=== PATIENT | male | born 1975 | race African-American/Black ===

== ENCOUNTER 2017-12-20 00:31 | Emergency (ER) | payer SELFPAY ==
--- NOTE | 2017-12-20 01:37 | ER Document Report ---
ED General - General Chief Complaint: Foot Pain Stated Complaint: LEFT FOOT PAIN Time Seen by Provider: 12/20/17 01:05 Notes: Patient is a 41-year-old male with a past medical history of schizophrenia who presents with left foot pain. The patient states that he has a dull, aching, throbbing pain to the plantar surface of his left foot that has been worsening over the last several weeks. He states that there is an associated callus on the bottom of the foot that he believes is causing the pain. He denies any history of similar symptoms in the past. He has not done a try to treat the area. Nothing seems to worsen his symptoms other than being up and walking around on the area. He has not seen his primary doctor regarding today's concerns. He denies any spreading redness from the area, fever or constitutional symptoms. TRAVEL OUTSIDE OF THE [place] IN LAST 30 DAYS: No - Related Data Allergies/Adverse Reactions: No Known Allergies Allergy (Unverified 08/20/16 10:56) Past Medical History - General Information source: Patient - Social History Smoking Status: Current Every Day Smoker Frequency of alcohol use: None Drug Abuse: None Family History: Reviewed & Not Pertinent Patient has suicidal ideation: No Patient has homicidal ideation: No Renal/ Medical History: Denies: Hx Peritoneal Dialysis Psychiatric Medical History: Reports: Hx Depression - anxiety, Hx Schizophrenia Traumatic Medical History: Reports: Hx Traumatic Brain Injury - 10 years ago Review of Systems - Review of Systems Notes: Constitutional: Negative for fever. HENT: Negative for sore throat. Eyes: Negative for visual changes. Cardiovascular: Negative for chest pain. Respiratory: Negative for shortness of breath. Gastrointestinal: Negative for abdominal pain, vomiting or diarrhea. Genitourinary: Negative for dysuria. Musculoskeletal: Positive for left foot pain Skin: Negative for rash. Neurological: Negative for headaches, weakness or numbness. 10 point ROS negative except as marked above and in HPI. Physical Exam - Vital signs Vitals: Temp Pulse Resp BP Pulse Ox 98.0 F 77 16 139/90 H 99 12/20/17 00:39 12/20/17 00:39 12/20/17 00:39 12/20/17 00:39 12/20/17 00:39 Interpretation: Normal Notes: PHYSICAL EXAMINATION: GENERAL: Well-appearing, well-nourished and in no acute distress. HEAD: Atraumatic, normocephalic. EYES: sclera anicteric, conjunctiva are normal. ENT: Moist mucous membranes. NECK: Normal range of motion LUNGS: Normal work of breathing HEART: 2+ radial pulses bilaterally EXTREMITIES: no pitting or edema. No cyanosis. NEUROLOGICAL: No focal neurological deficits. Moves all extremities spontaneously and on command. PSYCH: Normal mood, normal affect. SKIN: Warm, Dry, normal turgor, there is a 2 x 1 cm callus at the plantar central base of the left foot with a small crack at the most superior aspect of the callus. No surrounding erythema. Course - Re-evaluation Re-evalutation: 12/20/17 01:36 Patient presents complaining of left foot pain. He has been noted to be walking around without any difficulty. However, he does have 2 x 1 cm area of a callus without any evidence of necrosis or associated cellulitis on the plantar surface of the mid left foot. No evidence of a septic joint, gout flare , dislocation, or fracture on exam and imaging. Vitals wnl. At this time, I do not see an indication for labs or further imaging. I have strongly encouraged the patient to keep off of the foot as much as possible, keep the area padded, and continue to dress the area regularly. I have also encouraged follow-up with his primary care physician and wound management. At this time will discharge with return precautions and follow-up recommendations. Verbal discharge instructions given a the bedside and opportunity for questions given. Medication warnings reviewed. Patient is in agreement with this plan and has verbalized understanding of return precautions and the need for primary care follow-up in the next 24-72 hours. - Vital Signs Vital signs: Temp Pulse Resp BP Pulse Ox 97.3 F 73 16 129/58 H 99 12/20/17 02:01 12/20/17 02:01 12/20/17 02:01 12/20/17 02:01 12/20/17 02:01 - Diagnostic Test Radiology reviewed: Image reviewed, Reports reviewed Radiology results interpreted by me: 12/20/17 01:36 Left foot x-ray: No acute fracture or dislocation Discharge - Discharge Clinical Impression: Left foot pain Condition: Good Disposition: HOME, SELF-CARE Additional Instructions: Your x-ray does not show any acute fracture today. You should continue to take anti-inflammatories such as ibuprofen 600 mg every 6 hours. Continue to apply ice to the area is much your able. Please follow-up with your primary care physician if you do not have improving your symptoms in the next 1-2 weeks. Please return immediately if you develop weakness, numbness, spreading redness from the area, or any other symptoms that are concerning to you.
--- NOTE | 2017-12-20 02:01 | RADIOLOGY REPORT (SQ) ---
EXAM DESCRIPTION: FOOT LEFT COMPLETE CLINICAL HISTORY: 41 years, Male, pain soft tissue injury. COMPARISON: None. NUMBER OF VIEWS: 3 LIMITATIONS: None. Findings: Bones, joints, and soft tissues of the left foot appear intact. No radiopaque foreign body. IMPRESSION: No acute findings.
[2017-12-20 02:08] VITALS: BP 129/58
== END 2017-12-20 02:10 | disposition home or self-care (01) ==
LOC: ER 00:31
DX: M79.672 Pain in left foot (principal); L84 Corns and callosities; F20.9 Schizophrenia, unspecified; F17.200 Nicotine dependence, unspecified, uncomplicated
CPT/HCPCS: 99283

== ENCOUNTER 2019-02-27 23:01 | Inpatient (IN) | payer MEDICARE, MEDICAID ==
[2019-02-27] MEDS ORDERED: MIDAZOLAM HCL 50 MG/100 ML RTUINJ ONE (23:06)
[2019-02-27] MEDS ORDERED: MIDAZOLAM HCL 50 MG/100 ML RTUINJ IV PRN (23:07)
[2019-02-27] MEDS ORDERED: ETOMIDATE INJ/PF 20 MG/10 ML SDV IV ONE (23:08)
[2019-02-27] MEDS ORDERED: ROCURONIUM BROMIDE INJ 50 MG/5 ML VIAL IV ONE (23:08)
--- NOTE | 2019-02-27 23:13 | ER Document Report ---
ED General - General Stated Complaint: OTHER Time Seen by Provider: 02/27/19 23:07 Notes: Patient is a 43-year-old male here arrives unresponsive. Paramedics said he was found outside a building on the sidewalk unresponsive. Per medics that there was some chewing gum in his mouth which they cleared. He has been somnolent. He was given 2 mg of Narcan by the fire department. He was given another milligram by the paramedics. He had no response to the Narcan. Patient has had some posturing. They said he may have had some seizure-like activity when they first arrived. Blood sugar was 127. No further history is obtainable at this time. TRAVEL OUTSIDE OF THE [place] IN LAST 30 DAYS: No - Related Data Allergies/Adverse Reactions: No Known Allergies Allergy (Unverified 08/20/16 10:56) Past Medical History - Social History Smoking Status: Unknown if Ever Smoked Frequency of alcohol use: unknown Drug Abuse: Other - unknown Family History: Reviewed & Not Pertinent Renal/ Medical History: Denies: Hx Peritoneal Dialysis Psychiatric Medical History: Reports: Hx Depression - anxiety, Hx Schizophrenia Traumatic Medical History: Reports: Hx Traumatic Brain Injury - 10 years ago Review of Systems - Review of Systems -: Yes ROS unobtainable due to patient's medical condition Physical Exam - Vital signs Vitals: Resp Pulse Ox 18 100 02/27/19 23:04 02/27/19 23:04 - Notes Notes: General Appearance: Completely unresponsive. Snoring type respirations. Occasional posturing. Vitals: reviewed, See vital signs table. Head: no swelling or tenderness to the head Eyes: PERRL, EOMI, Conjuctiva clear Mouth: No decreasd moisture Throat: No tonsillar inflammation, No airway obstruction, No lymphadenopathy Neck: Cervical collar in place. Lungs: No wheezing, No rales, No rhonci, No accessory muscle use, good air exchange bilaterally. Heart: Normal rate, Regular rythm, No murmur, no rub Abdomen: Normal BS, soft, No rigidity, No abdominal tenderness, No guarding, no rebound, no abdominal masses, no organomegaly Extremities: good pulses in all extremities, no pharmacy to extremities, no edema. Skin: warm, dry, appropriate color, no rash Neuro: Patient is completely unresponsive. Pupils are 3 to 4 mm and reactive. Patient has occasional posturing of the upper and lower extremities. Patient does not respond at all to painful or verbal stimuli. Snoring respirations. Course - Re-evaluation Re-evalutation: 02/27/19 23:13 Patient arrives unresponsive. He is a received a total of 3 mg of Narcan and his pupils are normal shape and size and therefore I do not feel that further Narcan will be of any benefit whatsoever. Therefore went forward with intubation of the patient. Patient is now intubated on ventilator. 02/28/19 02:15 Patient has been doing well on the ventilator. His alcohol is 3-5. This may be why he is currently unresponsive. CT scan of his head and neck are negative. Drug screen is negative. Rest of his laboratory evaluation is unremarkable. I will speak with the hospitalist about potential admission. - Vital Signs Vital signs: Temp Pulse Resp BP Pulse Ox 97.2 F 87 18 123/81 96 02/28/19 05:06 02/28/19 05:06 02/28/19 05:06 02/28/19 05:06 02/28/19 05:06 - Laboratory Result Diagrams: 02/28/19 03:49 02/28/19 03:49 Laboratory results interpreted by me: 02/27/19 02/27/19 02/27/19 23:05 23:05 23:05 Carbonic Acid 1.65 H ABG pH 7.33 L ABG pCO2 54.7 H ABG pO2 272.4 H ABG HCO3 27.9 H ABG Total CO2 29.5 H ABG O2 Saturation 99.6 H Glucose 114 H Phosphorus Creatine Kinase 759 H Urine Ascorbic Acid Salicylates < 1.0 L Acetaminophen < 10 L Carbamazepine [place] < 0.2 L Serum Alcohol 385 H* 02/27/19 02/27/19 02/28/19 23:05 23:05 00:00 Carbonic Acid ABG pH ABG pCO2 ABG pO2 ABG HCO3 ABG Total CO2 ABG O2 Saturation Glucose Phosphorus 5.2 H Creatine Kinase Urine Ascorbic Acid 40 H Salicylates Acetaminophen Carbamazepine < 2.0 L [place] Serum Alcohol - EKG Interpretation by Me Additional EKG results interpreted by me: 02/28/19 00:56 EKG is reviewed and interpreted by me. EKG shows sinus rhythm with rate of [address] segment elevation or depression. Mild T wave inversions to leads V1 and V2 which are not change in comparison to his previous EKG from August2015. CO interval, QTc intervals are within normal range. QRS duration is slightly prolonged. Procedures - Intubation Orotracheal Airway evaluation: Normal anatomy Mallampati Classification: Class 1 Medications: Etomidate, Other - rocuronium Intubation method: Orotracheal Blade type: Jordi Blade size: 4 Equipment used: Glidescope ETT size: 7.5 Breath Sounds after Intubation: Equal End tidal CO2 confirmed: Yes Post Intubation Xray: Yes - appropriate positioning Intubation Complications: No complications Critical Care Note - Critical Care Note Total time excluding time spent on procedures (mins): 65 Comments: Critical care time for this patient including time spent in procedures a pproximately 65 minutes due to frequent re-evaluations, management of airway, management of sedation. Discharge - Discharge Clinical Impression: Respiratory failure Qualifiers: Chronicity: acute Respiratory failure complication: unspecified whether with hypoxia or hypercapnia Qualified Code(s): J96.00 - Acute respiratory failure, unspecified whether with hypoxia or hypercapnia Altered mental status Qualifiers: Altered mental status type: unspecified Qualified Code(s): R41.82 - Altered mental status, unspecified Hypothermia Qualifiers: Encounter type: initial encounter Qualified Code(s): T68.XXXA - Hypothermia, initial encounter Alcohol intoxication Qualifiers: Complication of substance-induced condition: with delirium Qualified Code(s): F10.921 - Alcohol use, unspecified with intoxication delirium Condition: Stable Disposition: ADMITTED INPATIENT Admitting Provider: John (Hospitalist) Unit Admitted: ICU
[2019-02-27 23:29] LABS: ABSOLUTE LYMPHOCYTES (AUTO) 1.9 10^3/uL (0.5-4.7); ABSOLUTE MONOCYTES (AUTO) 0.4 10^3/uL (0.1-1.4); ABSOLUTE NEUT (AUTO) 3.9 10^3/uL (1.7-8.2); BASOPHILS % (AUTO) 0.7 % (0-2); EOSINOPHILS % (AUTO) 0.4 % (0-6); HEMATOCRIT 41.8 % (37.9-51.0); LYMPHOCYTES % (AUTO) 30.8 % (13-45); MEAN CORPUSCULAR HEMOGLOBIN 29.5 pg (27.0-33.4); MEAN CORPUSCULAR HGB CONC 33.6 g/dL (32.0-36.0); MEAN CORPUSCULAR VOLUME 88 fl (80-97); MONOCYTES % (AUTO) 5.8 % (3-13); PLATELET COUNT 326 10^3/uL (150-450); RED BLOOD COUNT 4.75 10^6/uL (4.35-5.55); RED CELL DISTRIBUTION WIDTH 12.8 % (11.5-14.0); SEGMENTED NEUTROPHILS % (AUTO) 62.3 % (42-78); TOTAL CELLS COUNTED % (AUTO) 100 %; WHITE BLOOD COUNT 6.3 10^3/uL (4.0-10.5)
--- NOTE | 2019-02-27 23:44 | RADIOLOGY REPORT (SQ) ---
EXAM DESCRIPTION: XR CHEST 1 VIEW COMPLETED DATE/TME: 02/27/2019 23:09 CLINICAL HISTORY: 43 years, Male, post intubation COMPARISON: None. NUMBER OF VIEWS: Two TECHNIQUE: Two views of the chest were obtained. LIMITATIONS: None. FINDINGS: Endotracheal tube tip is located in the trachea, approximately 6.7 cm above the kayleen. Enteric drainage tube tip projects about the gastric body. However, the side-port is located the GE junction. Cardiac and mediastinal contours are normal. Lungs are clear. No pleural effusion or pneumothorax. Nipple shadows are noted about both hemithoraces. IMPRESSION: Clear lungs. Endotracheal tube tip is located within the trachea, approximately 6.7 cm above the kayleen. Enteric drainage tube tip projects about the gastric body with side-port located at the GE junction. Consider advancement for optimal positioning. copyright 2010 [employer]- All Rights Reserved
[2019-02-27] MEDS: MIDAZOLAM 2 MG/2 ML INJ IV ONE (23:45)
[2019-02-27 23:52] LABS: ALANINE AMINOTRANSFERASE 44 U/L (21-72); ALBUMIN 4.4 g/dL (3.5-5.0); ALKALINE PHOSPHATASE 118 U/L (38-126); ANION GAP 14 (5-19); ASPARTATE AMINO TRANSFERASE 43 U/L (17-59); BILIRUBIN,DIRECT 0.2 mg/dL (0.0-0.4); BILIRUBIN,TOTAL 0.2 mg/dL (0.2-1.3); BLOOD UREA NITROGEN 17 mg/dL (7-20); CALCIUM 9.4 mg/dL (8.4-10.2); CARBON DIOXIDE 27 mmol/L (22-30); CHLORIDE 104 mmol/L (98-107); GLUCOSE 114 mg/dL (75-110); POTASSIUM 4.1 mmol/L (3.6-5.0); SODIUM 144.9 mmol/L (137-145); TOTAL PROTEIN 7.2 g/dL (6.3-8.2)
[2019-02-27 23:53] LABS: ACETAMINOPHEN < 10 ug/mL (10-30); SALICYLATE < 1.0 mg/dL (2.0-20.0)
--- NOTE | 2019-02-27 23:53 | RADIOLOGY REPORT (SQ) ---
CT HEAD WITHOUT IV CONTRAST HISTORY: Head trauma. COMPARISON: None. TECHNIQUE: CT scan of the brain without IV contrast. This exam was performed according to our departmental dose-optimization program, which includes automated exposure control, adjustment of the mA and/or kV according to patient size and/or use of iterative reconstruction technique. FINDINGS: The ventricles, cisterns, and sulci are unremarkable. No focal white matter lesions are seen. No evidence of acute infarction, intracranial hemorrhage, extra-axial fluid collection, or midline shift. Mild mucosal thickening of the ethmoid air cells and frontal sinuses. No air-fluid levels are seen. The mastoid air cells are clear. No depressed skull fracture. IMPRESSION: No acute intracranial findings.
--- NOTE | 2019-02-27 23:53 | RADIOLOGY REPORT (SQ) ---
EXAM DESCRIPTION: CT CERVICAL SPINE WITHOUT IV CONTRAST COMPLETED DATE/TME: 02/27/2019 23:08 CLINICAL HISTORY: 43 years, Male, trauma COMPARISON: None. TECHNIQUE: Noncontrast CT of the cervical spine was performed. Coronal and sagittal reformations were created. Images stored on PACS. All CT scanners at this facility use dose modulation, iterative reconstruction, and/or weight based dosing when appropriate to reduce radiation dose to as low as reasonably achievable (ALARA). [facility]: Dose Right [facility]: CareDose [facility]: Dose Right [facility]: Teradose 4D [facility]: [employer] LIMITATIONS: None. FINDINGS: Limited evaluation of the posterior fossa structures reveals no suspicious finding. Occipital condyles are normal. Lateral masses of C1 and C2 align properly. Base and tip of the dens are intact. Craniocervical alignment is maintained. Cervical vertebral body heights and alignments are maintained. Only mild intervertebral space narrowing is noted at C6-C7 with associated anterior/posterior endplate spurring. No acute fracture or malalignment is appreciated. Visualized lung apices are clear. Paravertebral soft tissues show no suspicious finding. IMPRESSION: No acute fracture or malalignment. TECHNICAL DOCUMENTATION: Quality ID # [id number]: Final reports with documentation of one or more dose reduction techniques (e.g., Automated exposure control, adjustment of the mA and/or kV according to patient size, use of iterative reconstruction technique) copyright 2011 [employer]- All Rights Reserved
[2019-02-28 00:07] LABS: ALCOHOL 385 mg/dL (NONE DETECTED)
[2019-02-28] MEDS: MIDAZOLAM 2 MG/2 ML INJ IV ONE (00:10)
[2019-02-28 00:59] LABS: ARTERIAL BLOOD BASE EXCESS 0.7 mmol/L; ARTERIAL BLOOD FIO2 50%; ARTERIAL BLOOD H2CO3 1.65 mmol/L (1.05-1.35); ARTERIAL BLOOD HCO3 27.9 mmol/L (20-24); ARTERIAL BLOOD O2 SATURATION 99.6 % (94-98); ARTERIAL BLOOD PCO2 54.7 mmHg (35-45); ARTERIAL BLOOD PH 7.33 (7.35-7.45); ARTERIAL BLOOD PO2 272.4 mmHg (80-100); ARTERIAL BLOOD TOTAL CO2 29.5 mmol/L (23-27)
[2019-02-28 01:10] LABS: APPEARANCE,URINE CLEAR; BILIRUBIN,URINE NEGATIVE (NEGATIVE); COLOR,URINE YELLOW; GLUCOSE, URINE NEGATIVE (NEGATIVE); KETONES,URINE NEGATIVE (NEGATIVE); LEUKOCYTE ESTERASE,URINE NEGATIVE (NEGATIVE); NITRITE,URINE NEGATIVE (NEGATIVE); PROTEIN,URINE NEGATIVE (NEGATIVE); URINE SPECIFIC GRAVITY 1.012; UROBILINOGEN,URINE NEGATIVE mg/dL (<2.0)
[2019-02-28 02:10] LABS: URINE AMPHETAMINES SCREEN NEGATIVE; URINE BARBITURATES SCREEN NEGATIVE; URINE BENZODIAZEPINES SCREEN NEGATIVE; URINE COCAINE SCREEN NEGATIVE; URINE MARIJUANA (THC) SCREEN NEGATIVE; URINE METHADONE SCREEN NEGATIVE; URINE PHENCYCLIDINE SCREEN NEGATIVE
[2019-02-28] MEDS ORDERED: IPRATROPIUM/ALBUTEROL 0.5-2.5 MG/3 ML AMPUL NEB PRN (02:20)
[2019-02-28] MEDS ORDERED: ACETAMINOPHEN 325 MG TABLET NG PRN (02:20)
[2019-02-28] MEDS ORDERED: DEXTROSE 50%-WATER 25 GM/50 ML DISP.SYRIN IV PRN ×2 (02:28)
[2019-02-28] MEDS ORDERED: GLUCAGON,HUMAN RECOMB 1 MG INJ IM PRN (02:28)
[2019-02-28] MEDS ORDERED: DEXTROSE 40% GEL 15 GM TUBE PO PRN ×2 (02:28)
[2019-02-28 02:34] LABS: CREATINE KINASE 759 U/L (55-170)
[2019-02-28 02:36] LABS: LITHIUM < 0.2 mEq/L (0.6-1.2)
[2019-02-28 02:54] LABS: PHOSPHORUS 5.2 mg/dL (2.5-4.5)
--- NOTE | 2019-02-28 03:56 | PDOC H&P ---
History of Present Illness Admission Date/PCP: 02/28/19 02:46 ANDRE DAWKINS MD Patient complains of: Altered mental status History of Present Illness: MJ SAUCEDO is a 43 year old male whose history is obtained by the emergency room provider as the patient is intubated and sedated. Past medical history includes schizophrenia, tobacco and alcoholism. Patient arrives via EMS after found unresponsive and apneic on the sidewalk. He received 2 mg of Narcan wi thout response he received a second dose without response. Blood sugar was 127 he was noted to have some posturing. In the emergency room he remains unresponsive with hypothermia of 94.9, apnea, unable to protect his airway intubated and placed on a bear hugger. Labs reveal an alcohol of 385, total CK is pending. He is referred to the hospitalist for admission. Patient is found disheveled, without evidence of trauma and comfortable on current ventilator settings. Past Medical History Psychiatric Medical History: Reports: Alcohol Dependency, Depression - anxiety, Schizoaffective Disorder, Tobacco Dependency Traumatic Medical History: Reports: Traumatic Brain Injury - 10 years ago Social History Information Source: Emergency Med Personnel, [facility] Records Smoking Status: Unknown if Ever Smoked Frequency of Alcohol Use: Heavy - Advance Directive Resuscitation Status: Full Code Family History Family History: Other - Unobtainable Parental Family History Reviewed: Yes - Unobtainable Children Family History Reviewed: Yes - Unobtainable Sibling(s) Family History Reviewed.: Yes - Unobtainable Medication/Allergy Home Medications: Atomoxetine HCl [Strattera 60 mg Capsule] 60 mg PO DAILY 08/24/16 Carbamazepine 1,000 mg PO DAILY 08/24/16 Donepezil HCl 10 mg PO QHS 08/24/16 Risperidone [Risperdal] 3 mg PO QHS 08/24/16 Allergies/Adverse Reactions: No Known Allergies Allergy (Unverified 08/20/16 10:56) Review of Systems ROS unobtainable: Due to mental status - Intubated and sedated Physical Exam Vital Signs: Temp Pulse Resp BP Pulse Ox 96.1 F L 19 138/102 H 100 02/28/19 01:26 02/28/19 01:26 02/28/19 01:39 02/28/19 01:26 Intake & Output 05/07/19 05/08/19 05/09/19 11:59 11:59 11:59 Intake Total 9 Output Total 1500 Balance -1491 Weight 79 kg General appearance: PRESENT: disheveled, well-developed, well-nourished, other - Comfortable, intubated and sedated Head exam: PRESENT: atraumatic, normocephalic Eye exam: PRESENT: conjunctiva pink, EOMI, PERRLA. ABSENT: scleral icterus Ear exam: PRESENT: normal external ear exam Mouth exam: PRESENT: moist, tongue midline Neck exam: ABSENT: carotid bruit, JVD, lymphadenopathy, thyromegaly Respiratory exam: PRESENT: clear to auscultation juan antonio. ABSENT: rales, rhonchi, wheezes Cardiovascular exam: PRESENT: RRR. ABSENT: diastolic murmur, rubs, systolic murmur Pulses: PRESENT: normal dorsalis pedis pul Vascular exam: PRESENT: normal capillary refill GI/Abdominal exam: PRESENT: normal bowel sounds, soft. ABSENT: distended, guarding, mass, organolmegaly, rebound, tenderness Rectal exam: PRESENT: deferred Extremities exam: PRESENT: full ROM. ABSENT: calf tenderness, clubbing, pedal edema Neurological exam: PRESENT: altered, other - Intubated and sedated, unresponsive to noxious stimuli. ABSENT: motor sensory deficit Psychiatric exam: PRESENT: appropriate affect, normal mood. ABSENT: homicidal ideation, suicidal ideation Skin exam: PRESENT: dry, intact, warm. ABSENT: cyanosis, rash Results Laboratory Results: 02/27/19 23:05 02/27/19 23:05 02/27/19 02/27/19 02/27/19 23:05 23:05 23:05 WBC 6.3 RBC 4.75 Hgb 14.0 Hct 41.8 MCV 88 MCH 29.5 MCHC 33.6 RDW 12.8 Plt Count 326 Seg Neutrophils % 62.3 Lymphocytes % 30.8 Monocytes % 5.8 Eosinophils % 0.4 Basophils % 0.7 Absolute Neutrophils 3.9 Absolute Lymphocytes 1.9 Absolute Monocytes 0.4 Absolute Eosinophils 0.0 Absolute Basophils 0.0 Carbonic Acid 1.65 H HCO3/H2CO3 Ratio 16:1 ABG pH 7.33 L ABG pCO2 54.7 H ABG pO2 272.4 H ABG HCO3 27.9 H ABG O2 Saturation 99.6 H ABG Base Excess 0.7 FiO2 50% Sodium 144.9 Potassium 4.1 Chloride 104 Carbon Dioxide 27 Anion Gap 14 BUN 17 Creatinine 0.91 Est GFR ( Amer) > 60 Est GFR (Non-Af Amer) > 60 Glucose 114 H Calcium 9.4 Phosphorus Magnesium Total Bilirubin 0.2 AST 43 ALT 44 Alkaline Phosphatase 118 Total Protein 7.2 Albumin 4.4 TSH Urine Color Urine Appearance Urine pH Ur Specific [place] Urine Protein Urine Glucose (UA) Urine Ketones Urine Blood Urine Nitrite Ur Leukocyte Esterase Urine WBC (Auto) Urine RBC (Auto) 02/27/19 02/27/19 02/28/19 23:05 23:05 00:00 WBC RBC Hgb Hct MCV MCH MCHC RDW Plt Count Seg Neutrophils % Lymphocytes % Monocytes % Eosinophils % Basophils % Absolute Neutrophils Absolute Lymphocytes Absolute Monocytes Absolute Eosinophils Absolute Basophils Carbonic Acid HCO3/H2CO3 Ratio ABG pH ABG pCO2 ABG pO2 ABG HCO3 ABG O2 Saturation ABG Base Excess FiO2 Sodium Potassium Chloride Carbon Dioxide Anion Gap BUN Creatinine Est GFR ( Amer) Est GFR (Non-Af Amer) Glucose Calcium Phosphorus 5.2 H Magnesium 2.3 Total Bilirubin AST ALT Alkaline Phosphatase Total Protein Albumin TSH 0.98 Urine Color YELLOW Urine Appearance CLEAR Urine pH 5.0 Ur Specific [place] 1.012 Urine Protein NEGATIVE Urine Glucose (UA) NEGATIVE Urine Ketones NEGATIVE Urine Blood NEGATIVE Urine Nitrite NEGATIVE Ur Leukocyte Esterase NEGATIVE Urine WBC (Auto) 0 Urine RBC (Auto) 0 02/27/19 23:05 Creatine Kinase 759 H Impressions: Cervical Spine CT 02/27/19 23:08 IMPRESSION: No acute fracture or malalignment. TECHNICAL DOCUMENTATION: Quality ID # 436: Final reports with documentation of one or more dose reduction techniques (e.g., Automated exposure control, adjustment of the mA and/or kV according to patient size, use of iterative reconstruction technique) copyright 2011 [employer]- All Rights Reserved Head CT 02/27/19 23:08 IMPRESSION: No acute intracranial findings. Chest X-Ray 02/27/19 23:09 IMPRESSION: Clear lungs. Endotracheal tube tip is located within the trachea, approximately 6.7 cm above the kayleen. Enteric drainage tube tip projects about the gastric body with side-port located at the GE junction. Consider advancement for optimal positioning. copyright 2011 [employer]- All Rights Reserved Assessment and Plan - Diagnosis (1) Altered mental status Qualifiers: Altered mental status type: unspecified Qualified Code(s): R41.82 - Altered mental status, unspecified Is this a current diagnosis for this admission?: Yes Plan: Alcohol detected however unclear if another compounding agent present. Follow- up Risperdal, Tegretol levels. Intubated for airway protection, supportive measures (2) Schizophrenia Is this a current diagnosis for this admission?: Yes Plan: Supportive measures will require mental health consult and resumption of antipsychotic (3) Rhabdomyolysis Is this a current diagnosis for this admission?: Yes Plan: Serial CK, no obvious evidence of trauma, unclear time down. Anticipate co mpartment syndrome. IV fluid challenge, follow-up total CK, consider bicarb (4) Alcohol intoxication Qualifiers: Complication of substance-induced condition: with delirium Qualified Code(s): F10.921 - Alcohol use, unspecified with intoxication delirium Is this a current diagnosis for this admission?: Yes Plan: Thiamine and folate initiated, via Versed currently will likely require transition to p.o. if extubated in anticipation of withdrawal. (5) Hypothermia Qualifiers: Encounter type: initial encounter Qualified Code(s): T68.XXXA - Hypothermia, initial encounter Is this a current diagnosis for this admission?: Yes Plan: Secondary to prolonged exposure. No evidence for sepsis, continue bear jacquie (6) Respiratory failure Qualifiers: Chronicity: acute Respiratory failure complication: unspecified whether with hypoxia or hypercapnia Qualified Code(s): J96.00 - Acute respiratory failure, unspecified whether with hypoxia or hypercapnia Is this a current diagnosis for this admission?: Yes Plan: Hypercapnic respiratory failure secondary to altered mental status, unclear agent, follow-up ABG - Time Time Spent with patient: 35 or more minutes - Inpatient Certification Medical Necessity: Need Close Monitoring Due to Risk of Patient Decompensation
[2019-02-28 04:13] LABS: ABSOLUTE LYMPHOCYTES (AUTO) 2.2 10^3/uL (0.5-4.7); ABSOLUTE MONOCYTES (AUTO) 0.2 10^3/uL (0.1-1.4); ABSOLUTE NEUT (AUTO) 2.5 10^3/uL (1.7-8.2); BASOPHILS % (AUTO) 0.9 % (0-2); EOSINOPHILS % (AUTO) 0.3 % (0-6); HEMATOCRIT 42.3 % (37.9-51.0); HEMOGLOBIN 14.2 g/dL (13.5-17.0); LYMPHOCYTES % (AUTO) 43.9 % (13-45); MEAN CORPUSCULAR HEMOGLOBIN 29.4 pg (27.0-33.4); MEAN CORPUSCULAR HGB CONC 33.6 g/dL (32.0-36.0); MEAN CORPUSCULAR VOLUME 88 fl (80-97); MONOCYTES % (AUTO) 4.2 % (3-13); PLATELET COUNT 364 10^3/uL (150-450); RED BLOOD COUNT 4.82 10^6/uL (4.35-5.55); RED CELL DISTRIBUTION WIDTH 13.1 % (11.5-14.0); SEGMENTED NEUTROPHILS % (AUTO) 50.7 % (42-78); TOTAL CELLS COUNTED % (AUTO) 100 %
[2019-02-28 04:32] LABS: ALANINE AMINOTRANSFERASE 42 U/L (21-72); ALBUMIN 4.1 g/dL (3.5-5.0); ALKALINE PHOSPHATASE 84 U/L (38-126); ANION GAP 14 (5-19); ASPARTATE AMINO TRANSFERASE 40 U/L (17-59); BILIRUBIN,DIRECT 0.2 mg/dL (0.0-0.4); BILIRUBIN,TOTAL 0.3 mg/dL (0.2-1.3); BLOOD UREA NITROGEN 14 mg/dL (7-20); CALCIUM 9.2 mg/dL (8.4-10.2); CARBON DIOXIDE 26 mmol/L (22-30); CHLORIDE 108 mmol/L (98-107); GLUCOSE 100 mg/dL (75-110); POTASSIUM 3.8 mmol/L (3.6-5.0); SODIUM 147.9 mmol/L (137-145); TOTAL PROTEIN 6.9 g/dL (6.3-8.2)
[2019-02-28] MEDS: NORMAL SALINE 1000 ML 1,000 ML IV PRN ×2 (04:36→17:46)
[2019-02-28 04:42] LABS: ARTERIAL BLOOD BASE EXCESS 0.9 mmol/L; ARTERIAL BLOOD H2CO3 1.45 mmol/L (1.05-1.35); ARTERIAL BLOOD HCO3 26.9 mmol/L (20-24); ARTERIAL BLOOD PCO2 48.1 mmHg (35-45); ARTERIAL BLOOD PH 7.37 (7.35-7.45); ARTERIAL BLOOD PO2 84.7 mmHg (80-100); ARTERIAL BLOOD TOTAL CO2 28.4 mmol/L (23-27)
[2019-02-28 04:52] LABS: ARTERIAL BLOOD FIO2 28%
[2019-02-28] MEDS: PANTOPRAZOLE SODIUM 40 MG TABLET.DR PO SCH (05:46)
[2019-02-28] MEDS: HEPARIN SOD (PORCINE) 5,000 UNIT/ML 1 ML SYRINGE SUBCUT SCH ×3 (05:46→21:13)
[2019-02-28] MEDS: MIDAZOLAM HCL 50 MG/100 ML RTUINJ IV PRN ×3 (07:24→18:27)
[2019-02-28] MEDS ORDERED: THIAMINE HCL 100 MG TABLET NG SCH (10:00)
[2019-02-28] MEDS ORDERED: FOLIC ACID 1 MG TABLET NG SCH (10:00)
[2019-02-28] MEDS ORDERED: ROCURONIUM BROMIDE INJ 50 MG/5 ML VIAL IV ONE (10:02)
[2019-02-28] MEDS ORDERED: MIDAZOLAM 2 MG/2 ML INJ IV PRN (11:47)
[2019-02-28] MEDS ORDERED: NORMAL SALINE 1000 ML 1,000 ML with MAGNESIUM SULFATE 8 MEQ, THIAMINE HCL 100 MG, MVI, ... IV SCH ×5 (13:30)
--- NOTE | 2019-02-28 15:18 | PDOC CONSULTATION ---
Consultation Consult Date: 02/28/19 Attending physician:: ANDRE DAWKINS Consult reason:: Hypoxic Respiratory Failure History of Present Illness Admission Date/PCP: 02/28/19 02:46 ANDRE DAWKINS MD History of Present Illness: MJ SAUCEDO is a 43 year old male was intubated and sedated in the ER, history of schizophrenia, tobacco abuse, and alcoholism. Consult requested due to patient being in hypoxic and hypercapnic respiratory failure. Due to intubation and sedation majority of history obtained of chart. Past Medical History Psychiatric Medical History: Reports: Alcohol Dependency, Depression - anxiety, Schizoaffective Disorder, Tobacco Dependency Traumatic Medical History: Reports: Traumatic Brain Injury - 10 years ago Social History Smoking Status: Unknown if Ever Smoked Frequency of Alcohol Use: Heavy - Advance Directive Resuscitation Status: Full Code Family History Family History: Reviewed & Not Pertinent Parental Family History Reviewed: No Children Family History Reviewed: No Sibling(s) Family History Reviewed.: No Medication/Allergy Home Medications: Cetirizine HCl [Zyrtec 10 mg Tablet] 10 mg PO DAILY 02/28/19 Allergies/Adverse Reactions: No Known Allergies Allergy (Unverified 08/20/16 10:56) Review of Systems ROS unobtainable: Due to endotracheal tube Physical Exam Vital Signs: Temp Pulse Resp BP Pulse Ox 97.3 F 95 18 126/89 H 96 02/28/19 08:01 02/28/19 08:01 02/28/19 08:01 02/28/19 08:01 02/28/19 08:47 Intake & Output 02/27/19 02/28/19 03/01/19 06:59 06:59 06:59 Intake Total 83 Output Total 1600 10 Balance -1517 -10 Weight 70.3 kg 70.3 kg General appearance: PRESENT: disheveled. ABSENT: no acute distress, obese Head exam: PRESENT: atraumatic, normocephalic Eye exam: PRESENT: conjunctiva pink, EOMI. ABSENT: periorbital swelling, scleral icterus Ear exam: PRESENT: normal external ear exam Mouth exam: PRESENT: moist, neck supple, tongue midline, other - ET TUBE IN PLACE Neck exam: ABSENT: carotid bruit, lymphadenopathy, tenderness, tracheal deviation, tracheostomy Respiratory exam: PRESENT: decreased breath sounds. ABSENT: rales, rhonchi, wheezes Cardiovascular exam: PRESENT: RRR. ABSENT: diastolic murmur, irregular rhythm Pulses: PRESENT: normal dorsalis pedis pul Vascular exam: PRESENT: normal capillary refill GI/Abdominal exam: PRESENT: normal bowel sounds, soft. ABSENT: hyperactive bowel sounds Rectal exam: PRESENT: deferred Gentrourinary exam: PRESENT: indwelling catheter. ABSENT: erythema, scrotal swelling Extremities exam: PRESENT: full ROM. ABSENT: clubbing, joint swelling, pedal edema Musculoskeletal exam: PRESENT: full ROM, normal inspection. ABSENT: deformity, dislocation Psychiatric exam: PRESENT: appropriate affect, normal mood. ABSENT: homicidal ideation, suicidal ideation Skin exam: PRESENT: dry, intact, warm. ABSENT: rash, skin tears Results Laboratory Results: 02/28/19 03:49 02/28/19 03:49 02/27/19 02/27/19 02/27/19 23:05 23:05 23:05 WBC 6.3 RBC 4.75 Hgb 14.0 Hct 41.8 MCV 88 MCH 29.5 MCHC 33.6 RDW 12.8 Plt Count 326 Seg Neutrophils % 62.3 Lymphocytes % 30.8 Monocytes % 5.8 Eosinophils % 0.4 Basophils % 0.7 Absolute Neutrophils 3.9 Absolute Lymphocytes 1.9 Absolute Monocytes 0.4 Absolute Eosinophils 0.0 Absolute Basophils 0.0 Carbonic Acid 1.65 H HCO3/H2CO3 Ratio 16:1 ABG pH 7.33 L ABG pCO2 54.7 H ABG pO2 272.4 H ABG HCO3 27.9 H ABG O2 Saturation 99.6 H ABG Base Excess 0.7 FiO2 50% Sodium 144.9 Potassium 4.1 Chloride 104 Carbon Dioxide 27 Anion Gap 14 BUN 17 Creatinine 0.91 Est GFR ( Amer) > 60 Est GFR (Non-Af Amer) > 60 Glucose 114 H Calcium 9.4 Phosphorus Magnesium Total Bilirubin 0.2 AST 43 ALT 44 Alkaline Phosphatase 118 Total Protein 7.2 Albumin 4.4 TSH Urine Color Urine Appearance Urine pH Ur Specific [place] Urine Protein Urine Glucose (UA) Urine Ketones Urine Blood Urine Nitrite Ur Leukocyte Esterase Urine WBC (Auto) Urine RBC (Auto) 02/27/19 02/27/19 02/28/19 23:05 23:05 00:00 WBC RBC Hgb Hct MCV MCH MCHC RDW Plt Count Seg Neutrophils % Lymphocytes % Monocytes % Eosinophils % Basophils % Absolute Neutrophils Absolute Lymphocytes Absolute Monocytes Absolute Eosinophils Absolute Basophils Carbonic Acid HCO3/H2CO3 Ratio ABG pH ABG pCO2 ABG pO2 ABG HCO3 ABG O2 Saturation ABG Base Excess FiO2 Sodium Potassium Chloride Carbon Dioxide Anion Gap BUN Creatinine Est GFR ( Amer) Est GFR (Non-Af Amer) Glucose Calcium Phosphorus 5.2 H Magnesium 2.3 Total Bilirubin AST ALT Alkaline Phosphatase Total Protein Albumin TSH 0.98 Urine Color YELLOW Urine Appearance CLEAR Urine pH 5.0 Ur Specific [place] 1.012 Urine Protein NEGATIVE Urine Glucose (UA) NEGATIVE Urine Ketones NEGATIVE Urine Blood NEGATIVE Urine Nitrite NEGATIVE Ur Leukocyte Esterase NEGATIVE Urine WBC (Auto) 0 Urine RBC (Auto) 0 02/28/19 02/28/19 02/28/19 03:49 03:49 04:30 WBC 5.0 RBC 4.82 Hgb 14.2 Hct 42.3 MCV 88 MCH 29.4 MCHC 33.6 RDW 13.1 Plt Count 364 Seg Neutrophils % 50.7 Lymphocytes % 43.9 Monocytes % 4.2 Eosinophils % 0.3 Basophils % 0.9 Absolute Neutrophils 2.5 Absolute Lymphocytes 2.2 Absolute Monocytes 0.2 Absolute Eosinophils 0.0 Absolute Basophils 0.0 Carbonic Acid 1.45 H HCO3/H2CO3 Ratio 18:1 ABG pH 7.37 ABG pCO2 48.1 H ABG pO2 84.7 ABG HCO3 26.9 H ABG O2 Saturation 96.0 ABG Base Excess 0.9 FiO2 28% Sodium 147.9 H Potassium 3.8 Chloride 108 H Carbon Dioxide 26 Anion Gap 14 BUN 14 Creatinine 0.81 Est GFR ( Amer) > 60 Est GFR (Non-Af Amer) > 60 Glucose 100 Calcium 9.2 Phosphorus Magnesium Total Bilirubin 0.3 AST 40 ALT 42 Alkaline Phosphatase 84 Total Protein 6.9 Albumin 4.1 TSH Urine Color Urine Appearance Urine pH Ur Specific [place] Urine Protein Urine Glucose (UA) Urine Ketones Urine Blood Urine Nitrite Ur Leukocyte Esterase Urine WBC (Auto) Urine RBC (Auto) 02/27/19 23:05 Creatine Kinase 759 H Impressions: Cervical Spine CT 02/27/19 23:08 IMPRESSION: No acute fracture or malalignment. TECHNICAL DOCUMENTATION: Quality ID # 436: Final reports with documentation of one or more dose reduction techniques (e.g., Automated exposure control, adjustment of the mA and/or kV according to patient size, use of iterative reconstruction technique) copyright 2011 [employer]- All Rights Reserved Head CT 02/27/19 23:08 IMPRESSION: No acute intracranial findings. Chest X-Ray 02/27/19 23:09 IMPRESSION: Clear lungs. Endotracheal tube tip is located within the trachea, approximately 6.7 cm above the kayleen. Enteric drainage tube tip projects about the gastric body with side-port located at the GE junction. Consider advancement for optimal positioning. copyright 2010 [employer]- All Rights Reserved Assessment & Plan - Diagnosis (1) Acute respiratory failure with hypoxia and hypercapnia Is this a current diagnosis for this admission?: Yes Plan: Patient currently on ventilator will plan for sedation vacations over the next 3 to 4 days we will keep these light due to patient EtOH withdrawal (2) Alcohol intoxication Qualifiers: Complication of substance-induced condition: with delirium Qualified Code(s): F10.921 - Alcohol use, unspecified with intoxication delirium Is this a current diagnosis for this admission?: Yes Plan: Patient currently on Versed order given to nurse for additional 2 mg every 6 PRN - Time Total Critical Time (Minutes): 63 Inpatient Scribe Statement - . Entered by Vika Cramer, acting as scribe for Dr. Argueta.
[2019-02-28] MEDS: PROPOFOL 1,000 MG/100 ML INFUS..BTL IV ONE ×2 (15:22→15:36)
[2019-02-28] MEDS: PROPOFOL 1,000 MG/100 ML INFUS..BTL IV PRN ×3 (15:25→22:43)
--- NOTE | 2019-02-28 19:45 | EKG REPORT ---
SEVERITY:- ABNORMAL ECG - SINUS RHYTHM PROBABLE LEFT ATRIAL ABNORMALITY NONSPECIFIC IVCD WITH LAD : Confirmed by: Jacquelyn Mariscal MD 28-Feb-2019 19:44:11
[2019-03-01] MEDS ORDERED: HALOPERIDOL LACTATE INJ 5 MG/1 ML VIAL ONE (00:06)
[2019-03-01] MEDS ORDERED: HALOPERIDOL LACTATE INJ 5 MG/1 ML VIAL IV ONE (00:30)
[2019-03-01 04:28] LABS: ABSOLUTE LYMPHOCYTES (AUTO) 1.3 10^3/uL (0.5-4.7); ABSOLUTE MONOCYTES (AUTO) 0.9 10^3/uL (0.1-1.4); BASOPHILS % (AUTO) 0.3 % (0-2); HEMATOCRIT 39.5 % (37.9-51.0); HEMOGLOBIN 13.3 g/dL (13.5-17.0); LYMPHOCYTES % (AUTO) 8.2 % (13-45); MEAN CORPUSCULAR HEMOGLOBIN 29.5 pg (27.0-33.4); MEAN CORPUSCULAR HGB CONC 33.7 g/dL (32.0-36.0); MEAN CORPUSCULAR VOLUME 88 fl (80-97); MONOCYTES % (AUTO) 5.4 % (3-13); PLATELET COUNT 338 10^3/uL (150-450); RED BLOOD COUNT 4.51 10^6/uL (4.35-5.55); RED CELL DISTRIBUTION WIDTH 13.2 % (11.5-14.0); SEGMENTED NEUTROPHILS % (AUTO) 86.1 % (42-78); TOTAL CELLS COUNTED % (AUTO) 100 %
[2019-03-01 04:31] LABS: ARTERIAL BLOOD BASE EXCESS 3.1 mmol/L; ARTERIAL BLOOD H2CO3 1.34 mmol/L (1.05-1.35); ARTERIAL BLOOD HCO3 28.2 mmol/L (20-24); ARTERIAL BLOOD O2 SATURATION 97.1 % (94-98); ARTERIAL BLOOD PCO2 44.4 mmHg (35-45); ARTERIAL BLOOD PH 7.42 (7.35-7.45); ARTERIAL BLOOD PO2 91.4 mmHg (80-100); ARTERIAL BLOOD TOTAL CO2 29.5 mmol/L (23-27)
[2019-03-01 04:32] LABS: ARTERIAL BLOOD FIO2 2L
[2019-03-01 04:32] LABS: WHITE BLOOD COUNT 16.2 10^3/uL (4.0-10.5)
[2019-03-01 04:40] LABS: ALANINE AMINOTRANSFERASE 38 U/L (21-72); ALBUMIN 3.7 g/dL (3.5-5.0); ALKALINE PHOSPHATASE 61 U/L (38-126); ANION GAP 9 (5-19); ASPARTATE AMINO TRANSFERASE 37 U/L (17-59); BILIRUBIN,DIRECT 0.3 mg/dL (0.0-0.4); BILIRUBIN,TOTAL 0.7 mg/dL (0.2-1.3); BLOOD UREA NITROGEN 20 mg/dL (7-20); CALCIUM 9.2 mg/dL (8.4-10.2); CARBON DIOXIDE 27 mmol/L (22-30); CHLORIDE 110 mmol/L (98-107); GLUCOSE 81 mg/dL (75-110); POTASSIUM 4.3 mmol/L (3.6-5.0); SODIUM 145.5 mmol/L (137-145); TOTAL PROTEIN 5.8 g/dL (6.3-8.2)
[2019-03-01] MEDS: PANTOPRAZOLE SODIUM 40 MG TABLET.DR PO SCH (05:12)
[2019-03-01] MEDS: HEPARIN SOD (PORCINE) 5,000 UNIT/ML 1 ML SYRINGE SUBCUT SCH ×3 (05:13→23:38)
--- NOTE | 2019-03-01 06:34 | RADIOLOGY REPORT (SQ) ---
EXAM DESCRIPTION: XR CHEST 1 VIEW COMPLETED DATE/TME: 03/01/2019 06:00 CLINICAL HISTORY: 43 years Male, resp failure COMPARISON: None. NUMBER OF VIEWS/TECHNIQUE: 1/AP FINDINGS: Adequate lung volume, clear parenchyma, normal cardiac silhouette, and intact bony thorax. IMPRESSION: No acute cardiopulmonary findings.
--- NOTE | 2019-03-01 07:30 | PDOC PROGRESS REPORT ---
Subjective Progress Note for:: 03/01/19 Subjective:: denies drinking tossed out rest home Reason For Visit: AMS INTOXICATION ACUTE RESP FAILURE Physical Exam Vital Signs: Temp Pulse Resp BP Pulse Ox 100.4 F 96 13 126/80 H 94 03/01/19 06:00 03/01/19 05:00 03/01/19 06:00 03/01/19 05:48 03/01/19 06:00 Intake & Output 02/27/19 02/28/19 03/01/19 07:59 07:59 07:59 Intake Total 83 2359.2 Output Total 1600 1295 Balance -1517 1064.2 Weight 154 lb 15.759 oz 166 lb 3.657 oz General appearance: PRESENT: no acute distress Respiratory exam: PRESENT: clear to auscultation juan antonio Cardiovascular exam: ABSENT: diastolic murmur, irregular rhythm, systolic murmur GI/Abdominal exam: ABSENT: mass, organolmegaly, tenderness Neurological exam: ABSENT: oriented to time Psychiatric exam: PRESENT: agitated Results Laboratory Results: Abnormal - 24 hr 03/01/19 03/01/19 03/01/19 03:45 03:45 04:11 WBC 16.2 H D Hgb 13.3 L Seg Neutrophils % 86.1 H Lymphocytes % 8.2 L Absolute Neutrophils 14.0 H ABG HCO3 28.2 H ABG Total CO2 29.5 H Sodium 145.5 H Chloride 110 H Total Protein 5.8 L Impressions: Cervical Spine CT 02/27/19 23:08 IMPRESSION: No acute fracture or malalignment. TECHNICAL DOCUMENTATION: Quality ID # 436: Final reports with documentation of one or more dose reduction techniques (e.g., Automated exposure control, adjustment of the mA and/or kV according to patient size, use of iterative reconstruction technique) copyright 2011 [employer]- All Rights Reserved Head CT 02/27/19 23:08 IMPRESSION: No acute intracranial findings. Chest X-Ray 03/01/19 06:00 IMPRESSION: No acute cardiopulmonary findings. Assessment & Plan - Diagnosis (1) Schizophrenia Qualifiers: Schizophrenia type: paranoid schizophrenia Qualified Code(s): F20.0 - Paranoid schizophrenia Is this a current diagnosis for this admission?: Yes Plan: psych consult (2) Acute respiratory failure with hypoxia and hypercapnia Is this a current diagnosis for this admission?: Yes Plan: ok off vent last night. Zryl104.1. CXR-. (3) Alcohol intoxication Qualifiers: Complication of substance-induced condition: with delirium Qualified Code(s): F10.921 - Alcohol use, unspecified with intoxication delirium Is this a current diagnosis for this admission?: Yes Plan: watch for withdrawal (4) Rhabdomyolysis Is this a current diagnosis for this admission?: Yes
[2019-03-02] MEDS: HEPARIN SOD (PORCINE) 5,000 UNIT/ML 1 ML SYRINGE SUBCUT SCH (05:03)
[2019-03-02] MEDS: PANTOPRAZOLE SODIUM 40 MG TABLET.DR PO SCH (05:03)
[2019-03-02 06:02] LABS: ABSOLUTE EOSINOPHILS # (AUTO) 0.1 10^3/uL (0.0-0.6); ABSOLUTE MONOCYTES (AUTO) 0.6 10^3/uL (0.1-1.4); ABSOLUTE NEUT (AUTO) 5.7 10^3/uL (1.7-8.2); BASOPHILS % (AUTO) 0.2 % (0-2); EOSINOPHILS % (AUTO) 0.8 % (0-6); HEMATOCRIT 36.9 % (37.9-51.0); HEMOGLOBIN 12.4 g/dL (13.5-17.0); LYMPHOCYTES % (AUTO) 24.2 % (13-45); MEAN CORPUSCULAR HEMOGLOBIN 29.8 pg (27.0-33.4); MEAN CORPUSCULAR HGB CONC 33.7 g/dL (32.0-36.0); MEAN CORPUSCULAR VOLUME 88 fl (80-97); MONOCYTES % (AUTO) 7.1 % (3-13); PLATELET COUNT 300 10^3/uL (150-450); RED BLOOD COUNT 4.18 10^6/uL (4.35-5.55); RED CELL DISTRIBUTION WIDTH 13.1 % (11.5-14.0); SEGMENTED NEUTROPHILS % (AUTO) 67.7 % (42-78); TOTAL CELLS COUNTED % (AUTO) 100 %; WHITE BLOOD COUNT 8.4 10^3/uL (4.0-10.5)
[2019-03-02 06:24] LABS: ANION GAP 6 (5-19); BLOOD UREA NITROGEN 16 mg/dL (7-20); CARBON DIOXIDE 31 mmol/L (22-30); CHLORIDE 107 mmol/L (98-107); GLUCOSE 79 mg/dL (75-110); POTASSIUM 4.4 mmol/L (3.6-5.0); SODIUM 144.2 mmol/L (137-145)
--- NOTE | 2019-03-02 09:07 | PDOC DISCHARGE SUMMARY ---
General - Admit/Disc Date/PCP Admission Date/Primary Care Provider: 02/28/19 02:46 ANDRE DAWKINS MD Discharge Date: 03/02/19 - Discharge Diagnosis (1) Schizophrenia Is this a current diagnosis for this admission?: Yes (2) Acute respiratory failure with hypoxia and hypercapnia Is this a current diagnosis for this admission?: Yes (3) Alcohol intoxication Is this a current diagnosis for this admission?: Yes (4) Rhabdomyolysis Is this a current diagnosis for this admission?: Yes - Additional Information Resuscitation Status: Full Code Discharge Diet: As Tolerated Discharge Activity: Activity As Tolerated History of Present Illness Patient complains of: found unresponsive History of Present Illness: MJ SAUCEDO is a 43 year old male with long standing schizophrenia or bipolar who is noncompliant according to [facility]. Although he denies drinking, he came in with level 384 and required a day of vent. Hospital Course Hospital Course: Extubated night before last. No dts or shakes. Physical Exam Vital Signs: Temp Pulse Resp BP Pulse Ox 98.1 F 68 16 129/82 H 99 03/02/19 08:28 03/02/19 08:28 03/02/19 08:28 03/02/19 08:28 03/02/19 08:28 Intake & Output 03/01/19 03/02/19 03/03/19 07:59 07:59 07:59 Intake Total 2359.2 740 Output Total 1295 750 Balance 1064.2 -10 Weight 166 lb 3.657 oz General appearance: PRESENT: no acute distress Respiratory exam: PRESENT: clear to auscultation juan antonio Cardiovascular exam: ABSENT: diastolic murmur, irregular rhythm, systolic murmur GI/Abdominal exam: ABSENT: mass, organolmegaly, tenderness Extremities exam: ABSENT: pedal edema Neurological exam: PRESENT: alert Psychiatric exam: PRESENT: appropriate affect Results Laboratory Results: Abnormal - 24 Labs- Last Values WBC 8.4 10^3/uL (4.0-10.5) 03/02/19 04:43 RBC 4.18 10^6/uL (4.35-5.55) L 03/02/19 04:43 Hgb 12.4 g/dL (13.5-17.0) L 03/02/19 04:43 Hct 36.9 % (37.9-51.0) L 03/02/19 04:43 MCV 88 fl (80-97) 03/02/19 04:43 MCH 29.8 pg (27.0-33.4) 03/02/19 04:43 MCHC 33.7 g/dL (32.0-36.0) 03/02/19 04:43 RDW 13.1 % (11.5-14.0) 03/02/19 04:43 Plt Count 300 10^3/uL (150-450) 03/02/19 04:43 Seg Neutrophils % 67.7 % (42-78) 03/02/19 04:43 Lymphocytes % 24.2 % (13-45) 03/02/19 04:43 Monocytes % 7.1 % (3-13) 03/02/19 04:43 Eosinophils % 0.8 % (0-6) 03/02/19 04:43 Basophils % 0.2 % (0-2) 03/02/19 04:43 Absolute Neutrophils 5.7 10^3/uL (1.7-8.2) 03/02/19 04:43 Absolute Lymphocytes 2.0 10^3/uL (0.5-4.7) 03/02/19 04:43 Absolute Monocytes 0.6 10^3/uL (0.1-1.4) 03/02/19 04:43 Absolute Eosinophils 0.1 10^3/uL (0.0-0.6) 03/02/19 04:43 Absolute Basophils 0.0 10^3/uL (0.0-0.2) 03/02/19 04:43 Carbonic Acid 1.34 mmol/L (1.05-1.35) 03/01/19 04:11 HCO3/H2CO3 Ratio 21:1 03/01/19 04:11 ABG pH 7.42 (7.35-7.45) 03/01/19 04:11 ABG pCO2 44.4 mmHg (35-45) 03/01/19 04:11 ABG pO2 91.4 mmHg (80-100) 03/01/19 04:11 ABG HCO3 28.2 mmol/L (20-24) H 03/01/19 04:11 ABG Total CO2 29.5 mmol/L (23-27) H 03/01/19 04:11 ABG O2 Saturation 97.1 % (94-98) 03/01/19 04:11 ABG Base Excess 3.1 mmol/L 03/01/19 04:11 FiO2 2L 03/01/19 04:11 Sodium 144.2 mmol/L (137-145) 03/02/19 04:43 Potassium 4.4 mmol/L (3.6-5.0) 03/02/19 04:43 Chloride 107 mmol/L (98-107) 03/02/19 04:43 Carbon Dioxide 31 mmol/L (22-30) H 03/02/19 04:43 Anion Gap 6 (5-19) 03/02/19 04:43 BUN 16 mg/dL (7-20) 03/02/19 04:43 Creatinine 0.59 mg/dL (0.52-1.25) 03/02/19 04:43 Est GFR ( Amer) > 60 (>60) 03/02/19 04:43 Est GFR (Non-Af Amer) > 60 (>60) 03/02/19 04:43 Glucose 79 mg/dL (75-110) 03/02/19 04:43 Calcium 9.0 mg/dL (8.4-10.2) 03/02/19 04:43 Phosphorus 5.2 mg/dL (2.5-4.5) H 02/27/19 23:05 Magnesium 2.0 mg/dL (1.6-2.3) 03/02/19 04:43 Total Bilirubin 0.7 mg/dL (0.2-1.3) 03/01/19 03:45 Direct Bilirubin 0.3 mg/dL (0.0-0.4) 03/01/19 03:45 Neonat Total Bilirubin Not Reportable 03/01/19 03:45 Neonat Direct Bilirubin Not Reportable 03/01/19 03:45 Neonat Indirect Bili Not Reportable 03/01/19 03:45 AST 37 U/L (17-59) 03/01/19 03:45 ALT 38 U/L (21-72) 03/01/19 03:45 Alkaline Phosphatase 61 U/L (38-126) 03/01/19 03:45 Creatine Kinase 759 U/L (55-170) H 02/27/19 23:05 Total Protein 5.8 g/dL (6.3-8.2) L 03/01/19 03:45 Albumin 3.7 g/dL (3.5-5.0) 03/01/19 03:45 TSH 0.98 uIU/mL (0.47-4.68) 02/27/19 23:05 Urine Color YELLOW 02/28/19 00:00 Urine Appearance CLEAR 02/28/19 00:00 Urine pH 5.0 (5.0-9.0) 02/28/19 00:00 Ur Specific [place] 1.012 02/28/19 00:00 Urine Protein NEGATIVE mg/dL (NEGATIVE) 02/28/19 00:00 Urine Glucose (UA) NEGATIVE mg/dL (NEGATIVE) 02/28/19 00:00 Urine Ketones NEGATIVE mg/dL (NEGATIVE) 02/28/19 00:00 Urine Blood NEGATIVE (NEGATIVE) 02/28/19 00:00 Urine Nitrite NEGATIVE (NEGATIVE) 02/28/19 00:00 Urine Bilirubin NEGATIVE (NEGATIVE) 02/28/19 00:00 Urine Urobilinogen NEGATIVE mg/dL (<2.0) 02/28/19 00:00 Ur Leukocyte Esterase NEGATIVE (NEGATIVE) 02/28/19 00:00 Urine WBC (Auto) 0 /HPF 02/28/19 00:00 Urine RBC (Auto) 0 /HPF 02/28/19 00:00 U Hyaline Cast (Auto) 1 /LPF 02/28/19 00:00 Urine Mucus (Auto) RARE /LPF 02/28/19 00:00 Urine Ascorbic Acid 40 (NEGATIVE) H 02/28/19 00:00 Salicylates < 1.0 mg/dL (2.0-20.0) L 02/27/19 23:05 Urine Opiates Screen NEGATIVE 02/28/19 00:00 Urine Methadone Screen NEGATIVE 02/28/19 00:00 Acetaminophen < 10 ug/mL (10-30) L 02/27/19 23:05 Ur Barbiturates Screen NEGATIVE 02/28/19 00:00 Carbamazepine < 2.0 ug/mL (4.0-12.0) L 02/27/19 23:05 Ur Phencyclidine Scrn NEGATIVE 02/28/19 00:00 Ur Amphetamines Screen NEGATIVE 02/28/19 00:00 U Benzodiazepines Scrn NEGATIVE 02/28/19 00:00 [place] < 0.2 mEq/L (0.6-1.2) L 02/27/19 23:05 Urine Cocaine Screen NEGATIVE 02/28/19 00:00 U Marijuana (THC) Screen NEGATIVE 02/28/19 00:00 Serum Alcohol 385 mg/dL (NONE DETECTED) H* 02/27/19 23:05 Impressions: Cervical Spine CT 02/27/19 23:08 IMPRESSION: No acute fracture or malalignment. TECHNICAL DOCUMENTATION: Quality ID # 436: Final reports with documentation of one or more dose reduction techniques (e.g., Automated exposure control, adjustment of the mA and/or kV according to patient size, use of iterative reconstruction technique) copyright 2011 [employer]- All Rights Reserved Head CT 02/27/19 23:08 IMPRESSION: No acute intracranial findings. Chest X-Ray 03/01/19 06:00 IMPRESSION: No acute cardiopulmonary findings. Qualifiers - * PATIENT BEING DISCHARGED WITH ANY OF THE FOLLOWING DIAGNOSIS: No Acute Heart Failure Is this a Heart Failure Patient?: No Plan Discharge Plan: home. Ov prn
[2019-03-02 12:08] VITALS: BP 135/94
--- NOTE | 2019-03-02 16:53 | PSYCHOLOGICAL NOTE ---
Psych Note - Psych Note Date seen by psych provider: 03/02/19 Time seen by psych provider: 08:30 - 0845 Psych Note: Reason for consult: Alcohol abuse Patient disclosed that he was staying with a group however "got kicked out." He states that he is homeless right now because because he chose to leave the home yesterday. He states that he is tired of going there and doing everything they tell him to do. He states that they started to argue and then he told them that he would just leave. Patient denies drinking any alcohol yesterday however was reminded of his blood alcohol levels. Patient then stated "I did not drink honest to God to go to [facility]." Patient was asked if he was interested in detox or rehab which he confirmed. 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 He is also asked for assistance in increase in his food stamps and more money for his SSI. Patient was provided information on [employer] and [employer] security office. Patient reports he has family in [facility] however is unable to provide any contact information for them. He confirms he has his psychiatric medications at "Mr. Neal" house and that he is easily able to obtain them. Patient is alert and orientated to person, place, time and circumstance. Mood is euthymic with congruent affect as evidenced by smiling and engaging with clinician. Patient denies suicidal and homicidal ideation. Delusions are absent behaviors congruent with an intact reality based presentation i.e. organized linear thought process. Eye contact was well-maintained. Conversational speech is within normal rate, tone and prosody. Intellectual abilities appear to be below average range. Attention and concentration are fair. Insight, judgment, impulse control are fair. No medication recommendations at this time Diagnosis: 291.9 (F10.99) unspecified alcohol related disorder per history 298.9 (F29) Unspecified Schizophrenia Spectrum and Other Psychotic Disorder per History TBI history R/O 319 (F79) Unspecified Intellectual Disability (Intellectual Developmental Disorder) Impression\\plan: Patient is cleared from acute psychiatric services. Patient does not meet IVC criteria per [place] GS 122C. Patient denies that he was drinking however then states that he would be interested in detox or rehab information. When questioned on why he would need this if he was not drinking he then states yes I drink yesterday. Patient does have a history of alcohol abuse. Patient was provided locations that he can receive assistance for economic questions i.e. [facility] and [employer] security office. She is unable to provide any collateral contact information. Patient is encouraged to obtain substance abuse treatment and continue to take his mental health medications (patient confirms he has access to his medications at a friend's home). Dr. Nicholson was consulted to care management this patient; attending physicians in agreement with augmentations and disposition.
[2019-03-03 12:23] LABS: 9-OH-RISPERIDONE SERUM None Detected (Not Estab.); RISPERIDONE SERUM None Detected (Not Estab.)
--- NOTE | 2019-03-04 11:55 | PDOC PROGRESS REPORT ---
Subjective Progress Note for:: 03/01/19 Subjective:: Patient self extubated stable at this time Reason For Visit: AMS INTOXICATION ACUTE RESP FAILURE Physical Exam Vital Signs: Temp Pulse Resp BP Pulse Ox 99.9 F 86 18 130/75 H 94 03/01/19 08:00 03/01/19 08:00 03/01/19 08:00 03/01/19 08:00 03/01/19 08:00 Intake & Output 02/28/19 03/01/19 03/02/19 06:59 06:59 06:59 Intake Total 83 2359.2 Output Total 1600 1295 175 Balance -1517 1064.2 -175 Weight 70.3 kg 75.4 kg General appearance: PRESENT: no acute distress, cooperative, disheveled Head exam: PRESENT: normocephalic Eye exam: PRESENT: conjunctiva pale, EOMI, scleral icterus. ABSENT: nystagmus, periorbital swelling Mouth exam: PRESENT: dry mucosa, neck supple, tongue midline Teeth exam: PRESENT: poor dentation Neck exam: ABSENT: carotid bruit, full ROM, JVD, lymphadenopathy, meningismus, tenderness, thyromegaly, tracheal deviation, tracheostomy, other Respiratory exam: PRESENT: decreased breath sounds, prolonged expiratory phas, rales, rhonchi, symmetrical, unlabored. ABSENT: retraction, stridor, tachypnea Cardiovascular exam: PRESENT: RRR, +S1, +S2 Pulses: PRESENT: normal radial pulses GI/Abdominal exam: PRESENT: soft Extremities exam: ABSENT: calf tenderness, clubbing, joint swelling Musculoskeletal exam: ABSENT: deformity, dislocation Neurological exam: PRESENT: alert, awake Psychiatric exam: PRESENT: flat affect Skin exam: PRESENT: dry, warm Results Laboratory Results: 03/01/19 03:45 03/01/19 03:45 03/01/19 03/01/19 03/01/19 03:45 03:45 04:11 WBC 16.2 H D RBC 4.51 Hgb 13.3 L Hct 39.5 MCV 88 MCH 29.5 MCHC 33.7 RDW 13.2 Plt Count 338 Seg Neutrophils % 86.1 H Lymphocytes % 8.2 L Monocytes % 5.4 Eosinophils % 0.0 Basophils % 0.3 Absolute Neutrophils 14.0 H Absolute Lymphocytes 1.3 Absolute Monocytes 0.9 Absolute Eosinophils 0.0 Absolute Basophils 0.0 Carbonic Acid 1.34 HCO3/H2CO3 Ratio 21:1 ABG pH 7.42 ABG pCO2 44.4 ABG pO2 91.4 ABG HCO3 28.2 H ABG O2 Saturation 97.1 ABG Base Excess 3.1 FiO2 2L Sodium 145.5 H Potassium 4.3 Chloride 110 H Carbon Dioxide 27 Anion Gap 9 BUN 20 Creatinine 0.81 Est GFR ( Amer) > 60 Est GFR (Non-Af Amer) > 60 Glucose 81 Calcium 9.2 Magnesium 2.1 Total Bilirubin 0.7 AST 37 ALT 38 Alkaline Phosphatase 61 Total Protein 5.8 L Albumin 3.7 02/27/19 23:05 Creatine Kinase 759 H Impressions: Cervical Spine CT 02/27/19 23:08 IMPRESSION: No acute fracture or malalignment. TECHNICAL DOCUMENTATION: Quality ID # 436: Final reports with documentation of one or more dose reduction techniques (e.g., Automated exposure control, adjustment of the mA and/or kV according to patient size, use of iterative reconstruction technique) copyright 2011 [employer]- All Rights Reserved Head CT 02/27/19 23:08 IMPRESSION: No acute intracranial findings. Chest X-Ray 03/01/19 06:00 IMPRESSION: No acute cardiopulmonary findings. Assessment & Plan - Diagnosis (1) Acute respiratory failure with hypoxia and hypercapnia Is this a current diagnosis for this admission?: Yes Plan: Stable despite self extubation (2) Alcohol intoxication Qualifiers: Complication of substance-induced condition: with delirium Qualified Code(s): F10.921 - Alcohol use, unspecified with intoxication delirium Is this a current diagnosis for this admission?: Yes Plan: No behavioral problems at this time - Time Total Critical Time (Minutes): 40
== END 2019-03-02 14:42 | disposition home or self-care (01) | DRG 208 ==
LOC: ER 23:01 → EH 02-28 02:46 → ICU 02-28 04:49 → 4N 03-01 23:06
PROVIDERS: ADMIT Internal Medicine; ATTEND Internal Medicine
PROC: 5A1945Z Respiratory Ventilation, 24-96 Consecutive Hours (ICD-10-PCS; principal; 2019-02-28)
PROC: 0BH17EZ Insertion of Endotracheal Airway into Trachea, Via Natural or Artificial Opening (ICD-10-PCS; 2019-02-28)
DX: J96.02 Acute respiratory failure with hypercapnia (principal); M62.82 Rhabdomyolysis; F20.0 Paranoid schizophrenia; F10.121 Alcohol abuse with intoxication delirium; T68.XXXA Hypothermia, initial encounter; J96.01 Acute respiratory failure with hypoxia; Y90.8 Blood alcohol level of 240 mg/100 ml or more; Z87.820 Personal history of traumatic brain injury; F32.9 Major depressive disorder, single episode, unspecified; F41.9 Anxiety disorder, unspecified
CPT/HCPCS: 36415; 36600; 51702; 70450; 71045; 72125; 80048; 80053; 80156; 80178; 80299; 80307; 81001; 82550; 82803; 83735; 84100; 84443; 85025; 87040; 87086; 93005; 93010; 94002; 94003; 99291; J1630; J1644; J2250; J2704; J3411; J3475; J3490; J7030

== ENCOUNTER 2019-05-31 16:48 | Emergency (ER) | payer MEDICARE, MEDICAID ==
[2019-05-31 17:16] LABS: ABSOLUTE BASOPHILS # (AUTO) 0.1 10^3/uL (0.0-0.2); ABSOLUTE LYMPHOCYTES (AUTO) 1.5 10^3/uL (0.5-4.7); ABSOLUTE MONOCYTES (AUTO) 0.5 10^3/uL (0.1-1.4); ABSOLUTE NEUT (AUTO) 5.5 10^3/uL (1.7-8.2); BASOPHILS % (AUTO) 0.8 % (0-2); EOSINOPHILS % (AUTO) 0.2 % (0-6); HEMATOCRIT 41.2 % (37.9-51.0); LYMPHOCYTES % (AUTO) 19.7 % (13-45); MEAN CORPUSCULAR HEMOGLOBIN 30.2 pg (27.0-33.4); MEAN CORPUSCULAR VOLUME 89 fl (80-97); MONOCYTES % (AUTO) 6.1 % (3-13); PLATELET COUNT 395 10^3/uL (150-450); RED BLOOD COUNT 4.64 10^6/uL (4.35-5.55); RED CELL DISTRIBUTION WIDTH 13.4 % (11.5-14.0); SEGMENTED NEUTROPHILS % (AUTO) 73.2 % (42-78); TOTAL CELLS COUNTED % (AUTO) 100 %; WHITE BLOOD COUNT 7.6 10^3/uL (4.0-10.5)
[2019-05-31 17:33] LABS: ALBUMIN 4.2 g/dL (3.5-5.0); ALKALINE PHOSPHATASE 83 U/L (38-126); ANION GAP 11 (5-19); ASPARTATE AMINO TRANSFERASE 25 U/L (17-59); BILIRUBIN,DIRECT 0.2 mg/dL (0.0-0.4); BILIRUBIN,TOTAL 0.4 mg/dL (0.2-1.3); BLOOD UREA NITROGEN 18 mg/dL (7-20); CALCIUM 10.1 mg/dL (8.4-10.2); CARBON DIOXIDE 25 mmol/L (22-30); CHLORIDE 105 mmol/L (98-107); CREATINE KINASE 209 U/L (55-170); GLUCOSE 102 mg/dL (75-110); POTASSIUM 4.4 mmol/L (3.6-5.0); TOTAL PROTEIN 7.1 g/dL (6.3-8.2)
[2019-05-31 17:45] LABS: CREATINE KINASE MB 2.15 ng/mL (<4.55)
[2019-05-31 17:49] LABS: TROPONIN I < 0.012 ng/mL
--- NOTE | 2019-05-31 19:09 | EKG REPORT ---
SEVERITY:- ABNORMAL ECG - SINUS TACHYCARDIA LAD, CONSIDER LEFT ANTERIOR FASCICULAR BLOCK ST ELEVATION SUGGESTS PERICARDITIS , CLINICAL CORRELATION NEEDED : Confirmed by: Tip Mireles MD 31-May-2019 19:08:42
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
--- NOTE | 2019-05-31 19:58 | RADIOLOGY REPORT (SQ) ---
EXAM DESCRIPTION: CT HEAD WITHOUT COMPLETED DATE/TIME: 05/31/2019 7:39 pm REASON FOR STUDY: syncopal episode COMPARISON: 02/27/2019 TECHNIQUE: Axial images acquired through the brain without intravenous contrast. Images reviewed wit h bone, brain and subdural windows. Images stored on PACS. All CT scanners at this facility use dose modulation, iterative reconstruction, and/or weight based d osing when appropriate to reduce radiation dose to as low as reasonably achievable (ALARA). [facility]: Dose Right [facility]: CareDose [facility]: Dose Right [facility]: Teradose 4D [facility]: Smart [employer] RADIATION DOSE: CT Rad equipment meets quality standard of care and radiation dose reduction techniq ues were employed. CTDIvol: 53.2 mGy. DLP: 1044 mGy-cm.. LIMITATIONS: None. FINDINGS: VENTRICLES: Normal size and contour. CEREBRUM: No masses. No hemorrhage. No midline shift. Age appropriate white matter. No evidence for a cute infarction. CEREBELLUM: No masses. No hemorrhage. No alteration of density. No evidence for acute infarction. EXTRA-AXIAL SPACES: No fluid collections. ORBITS AND GLOBE: No intra- or extraconal masses. Normal contour of globe without masses. CALVARIUM: No fracture. PARANASAL SINUSES: No fluid or mucosal thickening. SOFT TISSUES: No mass or hematoma. OTHER: No other significant finding. IMPRESSION: NO ACUTE INTRACRANIAL FINDINGS. EVIDENCE OF ACUTE STROKE: NO. TECHNICAL DOCUMENTATION: JOB ID: [id number] [id number] Quality ID # [id number]: Final reports with documentation of one or more dose reduction techniques (e.g., Au tomated exposure control, adjustment of the mA and/or kV according to patient size, use of iterative reconstruction technique) 2010 [employer]- All Rights Reserved Reading location - IP/workstation name: [email or web address]
[2019-05-31 20:00] LABS: APPEARANCE,URINE SLIGHTLY-CLOUDY; BILIRUBIN,URINE NEGATIVE (NEGATIVE); COLOR,URINE YELLOW; GLUCOSE, URINE NEGATIVE (NEGATIVE); KETONES,URINE NEGATIVE (NEGATIVE); LEUKOCYTE ESTERASE,URINE NEGATIVE (NEGATIVE); NITRITE,URINE NEGATIVE (NEGATIVE); PROTEIN,URINE 30 mg/dL (NEGATIVE); URINE SPECIFIC GRAVITY 1.024
[2019-05-31] MEDS ORDERED: HALOPERIDOL LACTATE INJ 5 MG/1 ML VIAL IM ONE (20:37)
[2019-05-31] MEDS ORDERED: LORAZEPAM INJ 2 MG/1 ML VIAL IM ONE (20:37)
[2019-05-31] MEDS ORDERED: DIPHENHYDRAMINE HCL 50 MG/ML VIAL IM ONE (20:38)
[2019-05-31 20:55] LABS: URINE AMPHETAMINES SCREEN NEGATIVE; URINE BARBITURATES SCREEN NEGATIVE; URINE BENZODIAZEPINES SCREEN NEGATIVE; URINE COCAINE SCREEN NEGATIVE; URINE MARIJUANA (THC) SCREEN UNCONFIRMED POSITIVE; URINE METHADONE SCREEN NEGATIVE; URINE PHENCYCLIDINE SCREEN NEGATIVE
[2019-05-31 20:59] LABS: ACETAMINOPHEN < 10 ug/mL (10-30); SALICYLATE < 1.0 mg/dL (2.0-20.0)
[2019-05-31 21:28] LABS: VENOUS BLOOD BASE EXCESS -0.1 mmol/L; VENOUS BLOOD HCO3 26.2 mmol/L (20-32); VENOUS BLOOD PCO2 48.6 mmHg (35-63); VENOUS BLOOD PH 7.35 (7.30-7.42)
[2019-05-31] MEDS: NORMAL SALINE 1000 ML 1,000 ML IV PRN (21:32)
[2019-06-01] MEDS: NORMAL SALINE 1000 ML 1,000 ML IV PRN
[2019-06-01 01:48] LABS: ANION GAP 6 (5-19); BLOOD UREA NITROGEN 17 mg/dL (7-20); CARBON DIOXIDE 26 mmol/L (22-30); CHLORIDE 107 mmol/L (98-107); GLUCOSE 97 mg/dL (75-110); POTASSIUM 4.1 mmol/L (3.6-5.0)
--- NOTE | 2019-06-01 07:08 | PSYCHOLOGICAL NOTE ---
Psych Note - Psych Note Date seen by psych provider: 06/01/19 Time seen by psych provider: 09:20 Psych Note: Patient is alert and orientated to person, place and circumstance. Mood is euthymic with congruent affect as evidenced by smiling and engaging with clinician. Patient denies suicidal and homicidal ideation. Delusions are absent behaviors congruent with an intact reality based presentation i.e. organized linear thought process. Eye contact was well-maintained. Thought processes are linear and goal directed. Conversational speech is somewhat slurred and mumbled which seems to be baseline as documented and noted by this clinician during previous evaluation on 08/20/2016 and 03/02/2019. He is still audible and understandable. Intellectual abilities appear to be below average range. Attention and concentration are fair. Insight, judgment, impulse c ontrol are fair. No medication recommendations at this time Diagnosis: 291.9 (F10.99) unspecified alcohol related disorder per history 298.9 (F29) Unspecified Schizophrenia Spectrum and Other Psychotic Disorder per History TBI history R/O 319 (F79) Unspecified Intellectual Disability (Intellectual Developmental Disorder) Impression\plan: Patient is cleared from acute psychiatric services. Patient does not meet IVC criteria per [place] GS 122C. Patient denies that he was drinking however then states states he drink yesterday. Patient does have a history of alcohol abuse and it is noted the patient reports he drank yesterday during each evaluation. Patient was provided locations that he can receive assistance for economic questions i.e. [facility] and social security office. He unable to provide any collateral contact information bur reports he knows his friend AJ's address and that he lives in town. Patient is encouraged to obtain substance abuse treatment and continue to take his mental health medications. Dr. Nicholson was consulted to care management this patient; attending physicians in agreement with augmentations and disposition.
--- NOTE | 2019-06-01 09:53 | ER Document Report ---
Doctor's Note Notes: 06/01/19 09:52 I have evaluated this pt. this am and he has no c/o at this time. He feels all of his needs are being met and his physical exam is normal. He is awaiting placement per mental health.
[2019-06-01 10:47] VITALS: BP 127/72
[2019-06-03 18:11] LABS: METHANOL, BLOOD Negative % (0.000-0.01)
== END 2019-06-01 11:33 | disposition home or self-care (01) ==
LOC: ER 16:48
DX: R41.82 Altered mental status, unspecified (principal); N17.9 Acute kidney failure, unspecified; R55 Syncope and collapse; Z59.0 Homelessness; F17.200 Nicotine dependence, unspecified, uncomplicated; R00.0 Tachycardia, unspecified
CPT/HCPCS: 93005; 99285; 96361; 96374; 96375; 36415; 82553; 80307 ×4; 82550; 85025; 85652; 86140; 82693; 80048; 80053; 81001; 84484; 82803; 84600; 70450; 93010; J1200; J1630; J2060; J7030 ×2

== ENCOUNTER 2019-06-14 21:21 | Emergency (ER) | payer MEDICARE, MEDICAID ==
--- NOTE | 2019-06-15 01:25 | ER Document Report ---
HPI - HPI Time Seen by Provider: 06/15/19 01:01 Pain Level: 4 Context: Patient is a 43-year-old male that comes to the emergency department for chief complaint of right leg pain. He states he fell just prior to coming to the hospital, landed on his right hip area. He denies head injury or any other injuries. Patient also states he is homeless and he is looking for a place to stay. He denies headache, chest pain, focal numbness or weakness, or any other complaints. When asked he denies any past medical history or diagnosed medical problems. - REPRODUCTIVE Reproductive: DENIES: : Past Medical History - General Information source: Patient - Social History Smoking Status: Never Smoker Frequency of alcohol use: None Drug Abuse: None Lives with: Family Family History: Reviewed & Not Pertinent Renal/ Medical History: Denies: Hx Peritoneal Dialysis Psychiatric Medical History: Reports: Hx Depression - anxiety, Hx Schizoaffective Disorder, Hx Schizophrenia Traumatic Medical History: Reports: Hx Traumatic Brain Injury - 10 years ago - Immunizations Immunizations up to date: No Vertical Provider Document - CONSTITUTIONAL General Appearance: WD/WN, No Apparent Distress - INFECTION CONTROL TRAVEL OUTSIDE OF THE [place] IN LAST 30 DAYS: No - HEENT HEENT: Atraumatic, Normal ENT Exam, Normocephalic - NECK Neck: Normal Inspection - RESPIRATORY Respiratory: Breath Sounds Normal, No Respiratory Distress - CARDIOVASCULAR Cardiovascular: Regular Rate, Regular Rhythm - GI/ABDOMEN Gastrointestinal: Abdomen Soft, Abdomen Non-Tender - BACK Back: Normal Inspection - MUSCULOSKELETAL/EXTREMETIES Musculoskeletal/Extremeties: MAEW, FROM, Non-Tender - NEURO Level of Consciousness: Awake, Alert, Appropriate Motor/Sensory: No Motor Deficit, No Sensory Deficit - DERM Integumentary: Warm, Dry, No Rash Course - Re-evaluation Re-evalutation: X-ray unremarkable. Patient ambulates without difficulty. Full range of motion of the hip. No noted tenderness on examination. Physical examination generally unremarkable otherwise. Patient is well-appearing. Vital signs unremarkable. Patient with no other complaints. Discussed with results with patient, he states understanding. He ambulated without any difficulty. Patient states he is homeless, asking for assistance, I discussed this with him, heel caser consult was placed. He is not suicidal or homicidal, he answers all questions appropriately, he interviews appropriately. He does not appear to be acutely psychotic. I asked patient if he had any other concerns and he states he does not. Stable at time of discharge. - Vital Signs Vital signs: Temp Pulse Resp BP Pulse Ox 98.0 F 93 12 136/111 H 95 06/14/19 21:49 06/14/19 21:49 06/14/19 21:49 06/14/19 21:49 06/14/19 21:49 Discharge - Discharge Clinical Impression: Right hip pain, Homelessness Condition: Stable Disposition: HOME, SELF-CARE Additional Instructions: The x-ray of your hip does not show any concerning findings. Follow-up with primary care for additional evaluation management. We have a heel caser consult placed, they will be following up with you to attempt to assist you with your current situation. Return if you worsen including severe pain, swelling, or something is not right. Referrals: ANDRE DAWKINS MD [Primary Care Provider] - Follow up as needed
--- NOTE | 2019-06-15 01:53 | RADIOLOGY REPORT (SQ) ---
EXAM DESCRIPTION: XR HIP 2 OR MORE VIEWS COMPLETED DATE/TME: 06/15/2019 01:24 CLINICAL HISTORY: 43 years, Male, fall, pain COMPARISON: None. NUMBER OF VIEWS: 2 TECHNIQUE: AP pelvis and single view right hip LIMITATIONS: None. FINDINGS: Negative for fracture or dislocation. The soft tissues are unremarkable. IMPRESSION: Negative exam copyright 2010 [employer]- All Rights Reserved
[2019-06-15 03:03] VITALS: BP 126/76
[2019-06-15] MEDS ORDERED: ACETAMINOPHEN 325 MG TABLET PO ONE (03:07)
== END 2019-06-15 03:14 | disposition home or self-care (01) ==
LOC: ER 21:21
DX: M25.551 Pain in right hip (principal); Z59.0 Homelessness; W19.XXXA Unspecified fall, initial encounter
CPT/HCPCS: 99283; 73502; A9270

== ENCOUNTER 2020-01-22 15:52 | Emergency (ER) | payer MEDICARE, MEDICAID ==
[2020-01-22 15:57] VITALS: BP 158/89
--- NOTE | 2020-01-22 17:22 | ER Document Report ---
HPI - HPI Time Seen by Provider: 01/22/20 16:43 Notes: 44-year-old male patient presenting to the emergency department chief complaint of request for help getting medications. Patient reports that he lives in the [facility], he states he has a friend who has helped him pay for this and his friend keeps his medication safe for him. Patient reports he has not had his medications in 2 days. Patient denies any suicidal or homicidal ideations. Patient is calm and cooperative. See nurses notes for further detail. - REPRODUCTIVE Reproductive: DENIES: : Past Medical History - General Information source: Patient - Social History Smoking Status: Current Some Day Smoker Frequency of alcohol use: Social Drug Abuse: None Lives with: Alone Family History: Reviewed & Not Pertinent Renal/ Medical History: Denies: Hx Peritoneal Dialysis Psychiatric Medical History: Reports: Hx Depression - anxiety, Hx Schizoaffective Disorder, Hx Schizophrenia Traumatic Medical History: Reports: Hx Traumatic Brain Injury - 10 years ago - Immunizations Immunizations up to date: No Vertical Provider Document - CONSTITUTIONAL Notes: PHYSICAL EXAMINATION: GENERAL: Disheveled and in no acute distress. HEAD: Atraumatic, normocephalic. EYES: Pupils equal round extraocular movements intact, conjunctiva are normal. ENT: Nares patent NECK: Normal range of motion LUNGS: No respiratory distress Musculoskeletal: Normal range of motion NEUROLOGICAL: Normal speech, normal gait. PSYCH: Normal mood, normal affect. SKIN: Warm, Dry, normal turgor, no rashes or lesions noted. - INFECTION CONTROL TRAVEL OUTSIDE OF THE [place] IN LAST 30 DAYS: No Course - Re-evaluation Re-evalutation: Patient will follow-up with his psychiatry team tomorrow as a walk-in. See nurse's notes, his friend Lawrence who helps him get to and from appointments is going to pick him up and take him to [facility] tomorrow. Patient is in agreements with this plan. - Vital Signs Vital signs: Temp Pulse Resp BP Pulse Ox 98.5 F 121 H 20 158/89 H 95 01/22/20 15:56 01/22/20 15:56 01/22/20 15:56 01/22/20 15:56 01/22/20 15:56 Discharge - Discharge Clinical Impression: Medication refill, Homelessness Condition: Stable Disposition: HOME, SELF-CARE Additional Instructions: Please follow-up with [facility] first thing tomorrow morning for your medications. Referrals: ANDRE DAWKINS MD [ACTIVE STAFF] - Follow up as needed
== END 2020-01-22 17:45 | disposition home or self-care (01) ==
LOC: ER 15:52
DX: Z76.0 Encounter for issue of repeat prescription (principal); Z59.0 Homelessness; Z87.820 Personal history of traumatic brain injury; F17.200 Nicotine dependence, unspecified, uncomplicated
CPT/HCPCS: 99283

== ENCOUNTER 2020-01-24 15:10 | Emergency (ER) | payer MEDICARE, MEDICAID ==
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
[2020-01-24 15:57] LABS: ABSOLUTE BASOPHILS # (AUTO) 0.1 10^3/uL (0.0-0.2); ABSOLUTE EOSINOPHILS # (AUTO) 0.1 10^3/uL (0.0-0.6); ABSOLUTE LYMPHOCYTES (AUTO) 1.9 10^3/uL (0.5-4.7); ABSOLUTE MONOCYTES (AUTO) 0.3 10^3/uL (0.1-1.4); BASOPHILS % (AUTO) 0.9 % (0-2); EOSINOPHILS % (AUTO) 1.8 % (0-6); HEMATOCRIT 41.1 % (37.9-51.0); HEMOGLOBIN 14.1 g/dL (13.5-17.0); LYMPHOCYTES % (AUTO) 36.2 % (13-45); MEAN CORPUSCULAR HEMOGLOBIN 31.4 pg (27.0-33.4); MEAN CORPUSCULAR HGB CONC 34.3 g/dL (32.0-36.0); MEAN CORPUSCULAR VOLUME 92 fl (80-97); MONOCYTES % (AUTO) 5.9 % (3-13); PLATELET COUNT 323 10^3/uL (150-450); RED BLOOD COUNT 4.48 10^6/uL (4.35-5.55); SEGMENTED NEUTROPHILS % (AUTO) 55.2 % (42-78); TOTAL CELLS COUNTED % (AUTO) 100 %; WHITE BLOOD COUNT 5.4 10^3/uL (4.0-10.5)
[2020-01-24 16:09] LABS: APPEARANCE,URINE SLIGHTLY-CLOUDY; BILIRUBIN,URINE NEGATIVE (NEGATIVE); COLOR,URINE YELLOW; GLUCOSE, URINE NEGATIVE (NEGATIVE); KETONES,URINE NEGATIVE (NEGATIVE); LEUKOCYTE ESTERASE,URINE NEGATIVE (NEGATIVE); NITRITE,URINE NEGATIVE (NEGATIVE); PROTEIN,URINE NEGATIVE (NEGATIVE); URINE SPECIFIC GRAVITY 1.026
[2020-01-24 16:15] LABS: ALBUMIN 3.8 g/dL (3.5-5.0); ALCOHOL 72 mg/dL (NONE DETECTED); ALKALINE PHOSPHATASE 106 U/L (38-126); ANION GAP 5 (5-19); ASPARTATE AMINO TRANSFERASE 44 U/L (17-59); BILIRUBIN,TOTAL 0.2 mg/dL (0.2-1.3); BLOOD UREA NITROGEN 14 mg/dL (7-20); CALCIUM 9.4 mg/dL (8.4-10.2); CARBON DIOXIDE 28 mmol/L (22-30); CHLORIDE 107 mmol/L (98-107); GLUCOSE 124 mg/dL (75-110); TOTAL PROTEIN 6.5 g/dL (6.3-8.2)
[2020-01-24 16:17] LABS: ACETAMINOPHEN < 10 ug/mL (10-30); SALICYLATE < 1.0 mg/dL (2.0-20.0)
[2020-01-24 16:22] LABS: URINE AMPHETAMINES SCREEN NEGATIVE; URINE BARBITURATES SCREEN NEGATIVE; URINE BENZODIAZEPINES SCREEN NEGATIVE; URINE COCAINE SCREEN NEGATIVE; URINE MARIJUANA (THC) SCREEN NEGATIVE; URINE METHADONE SCREEN NEGATIVE; URINE PHENCYCLIDINE SCREEN NEGATIVE
--- NOTE | 2020-01-24 16:35 | PSYCHOLOGICAL NOTE ---
Psych Note - Psych Note Date seen by psych provider: 01/24/20 Time seen by psych provider: 15:50 Psych Note: Reason for Consult:AMS Patient reportedly was found in the [facility] parking lot and when told [facility]INA would be contacted he reported he needed to talk to someone "because I have a lot of concerns." Patient was leaning out of his room asking to talk to a provider because he has a "lot of concerns." Upon entering the room (the door to patient's room was open) the patient was in the process of changing over. He was standing on one foot taking his pants off without losing balance. Clinician told patient more time would be given to global climate change researcher and clinician would come back. Patient reports he came into [facility] for assistance with medical concerns; "I need help with bandaging my feet, my hands, and my genitals." He states he has no thought of harming himself or mental health concerns. He states he takes medication but does not remember what it is. He denies using any drugs currently. Patient does have alcohol in his system (BAL 72). Patient states that he is unsure what his mental health diagnosis is and reports that his mother had mental health. Patient again requests assistance for his medical concerns listing his feet, hands and genitals again and then added his eyes as a medical concern. Patient is alert and orientated to person, place time and circumstance. Mood is euthymic with congruent affect; patient is laying back in stretcher with his arms behind his head. He denies suicidal and homicidal ideation. Delusions are absent and behaviour is congruent on an reality based presentation ie organized and linear thought processes. (clinician notes the patient does attempt to act with flight of ideas when alone in room and trying to get someone to come in his room to provide him services, but is able to engage appropriately with clincian and demonstrates organized and linear thought processes). Eye contact is well- maintained. Conversational speech is within normal rate, tone and prosody. Intellectual abilities appear to be within the average to low average range. Attention and concentration are fair. Insight, judgment, impulse control are fair. Chart review Conducted: 01/08/2020 he received Invega Sustana from his outpatient mental health provider [facility]. Impression/Plan: Patient is cleared from acute psychiatric services. He denies any concerns for current mental health symptoms and denies thoughts of wanting to harm himself or others. Patient is not demonstrating any behaviors of responding to internal stimuli i.e. maintains eye contact with normal conversational speech and organized linear thought process. Clinician notes patient was not attempting to come in for any medical or mental health concerns until he was found panhandling in [facility] parking lot; this could indicate secondary gain. Patient does receive a monthly shot from his outpatient mental health provider [facility]. He is not due for another shot for approximately 2 weeks. Patient is currently homeless and has been provided economic resource list for the local area. Dr. Nicholson was consulted to care management of this patient; attending physicians in agreement with recommendations and disposition.
--- NOTE | 2020-01-24 16:53 | EKG REPORT ---
SEVERITY:- ABNORMAL ECG - SINUS OR ECTOPIC ATRIAL RHYTHM PROBABLE LEFT ATRIAL ABNORMALITY BORDERLINE LEFT AXIS DEVIATION LOW VOLTAGE IN FRONTAL LEADS NONSPECIFIC T ABNORMALITIES, LATERAL LEADS : Confirmed by: Fletcher Gibbs 24-Jan-2020 16:52:34
[2020-01-24] MEDS ORDERED: ACETAMINOPHEN 325 MG TABLET PO ONE (18:03)
--- NOTE | 2020-01-24 18:17 | ER Document Report ---
ED General - General Chief Complaint: Altered Mental Status Stated Complaint: FEET PAIN Time Seen by Provider: 01/24/20 15:15 Mode of Arrival: Ambulatory TRAVEL OUTSIDE OF THE [place] IN LAST 30 DAYS: No - HPI Notes: Patient is a 44-year-old male who presents to the emergency department for evaluation. Evidently he was panhandling and was brought in here when he was found to be altered. Please note that this history is obtained from evaluating the chart, as the patient is not forthcoming with me. He states to me that he just has pain in his feet from his calluses, and his genitals hurt. He denies any suicidal or homicidal ideation, no visual or auditory hallucination. He states he would like something to help with the calluses on his feet and the pain that this is causing, and he asks me repeatedly to examine his genitals. - Related Data Allergies/Adverse Reactions: No Known Allergies Allergy (Verified 01/24/20 15:15) Past Medical History - General Information source: Patient - What - Social History Smoking Status: Unknown if Ever Smoked Frequency of alcohol use: Heavy Family History: Reviewed & Not Pertinent Patient has suicidal ideation: No Patient has homicidal ideation: No Renal/ Medical History: Denies: Hx Peritoneal Dialysis Psychiatric Medical History: Reports: Hx Depression - anxiety, Hx Schizoaffective Disorder, Hx Schizophrenia Traumatic Medical History: Reports: Hx Traumatic Brain Injury - 10 years ago - Immunizations Immunizations up to date: No Review of Systems - Review of Systems Genitourinary: See HPI Musculoskeletal: See HPI Skin: See HPI -: Yes All other systems reviewed and negative Physical Exam - Vital signs Vitals: Temp Pulse Resp BP Pulse Ox 98.8 F 116 H 16 137/89 H 95 01/24/20 15:17 01/24/20 15:17 01/24/20 15:17 01/24/20 15:17 01/24/20 15:17 - Notes Notes: This is a 44-year-old male who appears his stated age in no acute distress. He has some mild disorganized thought, but is able to answer my questions appropriately. Vital signs reviewed, please refer to chart. Head is normo cephalic, atraumatic. Pupils equal round, reactive to light. Neck is supple without meningismus. Heart is regular rate and rhythm. Lungs are clear to auscultation bilaterally. Abdomen is soft, nontender, normoactive bowel sounds throughout. Extremities without cyanosis, clubbing. Posterior calves are nontender. Peripheral pulses are equal. Skin is warm and dry. He has some calluses noted on the plantar aspect of his feet bilaterally, but no signs of secondary infection or fluctuance. Patient is awake, alert, neurological exam is nonfocal. Genital exam is performed with ADAM Roberts present. Patient is a circumcised male, bilateral testicles descended. When I went to evaluate for tenderness on his testicles, the patient stated "who softer, I like that." He has intact cremasteric reflex, no apparent tenderness. I did not feel comfortable with a more focused exam, and I do not believe he has any significant genital pathology. Course - Re-evaluation Re-evalutation: 01/24/20 18:27 Patient presents to the emergency department for evaluation. He had laboratory investigations obtained. He does have a mildly elevated alcohol, but is still below the legal limit. The patient has a history of schizophrenia and he underwent a psychosocial evaluation. The patient here today did complain of genital pain, but I do believe that this was only for secondary gain with the hopes of having someone examine his genitals. He was given Tylenol for his foot pain, Juan C wrap to help decrease calluses. He is told he needs to follow-up with [facility] and he voiced understanding. Otherwise he is cleared from psychosocial [facility]. He is not a clear or present danger to self or anyone else at this time and is discharged from the emergency department. - Vital Signs Vital signs: Temp Pulse Resp BP Pulse Ox 97.9 F 92 18 134/72 H 97 01/24/20 16:59 01/24/20 16:59 01/24/20 16:59 01/24/20 16:59 01/24/20 16:59 - Laboratory Result Diagrams: 01/24/20 15:40 01/24/20 15:40 Laboratory results interpreted by me: 01/24/20 01/24/20 15:40 15:51 Glucose 124 H Urine Urobilinogen 2.0 H Urine Ascorbic Acid 40 H Salicylates < 1.0 L Acetaminophen < 10 L - EKG Interpretation by Me Additional EKG results interpreted by me: 01/24/20 18:28 Sinus mechanism with rate of 99 bpm. Left axis deviation. T wave inversion in lateral leads, ischemia versus strain. Discharge - Discharge Clinical Impression: Schizophrenia, Foot pain, bilateral Condition: Stable Disposition: HOME, SELF-CARE Instructions: Chronic Alcoholism ([facility]), Schizophrenia ([facility]) Additional Instructions: Please follow-up with [facility] as soon as possible. You can use Juan C wraps to protect your feet from further calluses. Return to the ER with worsening or new concerning symptoms of any sort.
[2020-01-24 18:41] VITALS: BP 144/88
== END 2020-01-24 18:40 | disposition home or self-care (01) ==
LOC: ER 15:10
DX: F20.9 Schizophrenia, unspecified (principal); M79.672 Pain in left foot; M79.671 Pain in right foot; Z87.820 Personal history of traumatic brain injury
CPT/HCPCS: 36415; 80053; 80307; 81001; 85025; 93005; 93010; 99284

== ENCOUNTER 2020-02-01 12:51 | Emergency (ER) | payer MEDICARE, MEDICAID ==
[2020-02-01 12:57] VITALS: BP 137/83
--- NOTE | 2020-02-01 13:16 | ER Document Report ---
HPI - HPI Time Seen by Provider: 02/01/20 13:02 Pain Level: 3 Notes: Patient is a 44-year-old male who is been seen in our emergency department multiple times lately, he is homeless. He is complaining of bilateral foot pain, he is asking for Juan C wrap for his feet. He denies any new injury. He is also requesting a medication for his allergies and for his arthritis in his feet. - REPRODUCTIVE Reproductive: DENIES: : Past Medical History - General Information source: Patient - Social History Smoking Status: Current Every Day Smoker Frequency of alcohol use: Occasional Drug Abuse: None Family History: Reviewed & Not Pertinent Patient has suicidal ideation: No Patient has homicidal ideation: No Renal/ Medical History: Denies: Hx Peritoneal Dialysis Psychiatric Medical History: Reports: Hx Depression - anxiety, Hx Schizoaffective Disorder, Hx Schizophrenia Traumatic Medical History: Reports: Hx Traumatic Brain Injury - 10 years ago - Immunizations Immunizations up to date: No Vertical Provider Document - CONSTITUTIONAL Notes: PHYSICAL EXAMINATION: GENERAL: Well-appearing, well-nourished and in no acute distress. HEAD: Atraumatic, normocephalic. EYES: Pupils equal round extraocular movements intact, conjunctiva are normal. ENT: Nares patent NECK: Normal range of motion LUNGS: No respiratory distress Musculoskeletal: Normal range of motion NEUROLOGICAL: Normal speech, normal gait. PSYCH: Normal mood, normal affect. SKIN: Warm, Dry, normal turgor, no rashes or lesions noted. - INFECTION CONTROL TRAVEL OUTSIDE OF THE [place] IN LAST 30 DAYS: No Course - Re-evaluation Re-evalutation: Patient's exam unremarkable. He was given 2 Juan C wraps for comfort as he states this helps with his arthritis in his bilateral feet. Patient will be discharged home at this time. - Vital Signs Vital signs: Temp Pulse Resp BP Pulse Ox 98.0 F 109 H 18 137/83 H 96 02/01/20 12:56 02/01/20 12:56 02/01/20 12:56 02/01/20 12:56 02/01/20 12:56 Procedures - Immobilization Bilateral feet Pre-Proc Neuro Vasc Exam: Normal Immobilizer type: Juan C wrap Performed by: Provider, Provider assisted, RN, PCT, Other Discharge - Discharge Clinical Impression: Foot pain Qualifiers: Laterality: bilateral Qualified Code(s): M79.671 - Pain in right foot Allergies Qualifiers: Encounter type: initial encounter Qualified Code(s): T78.40XA - Allergy, unspecified, initial encounter Condition: Stable Disposition: HOME, SELF-CARE Additional Instructions: Please go to [facility] pharmacy to excelsior picker your prescriptions for arthritis and allergies. Use the Juan C wraps/braces to help with your foot pain. Prescriptions: Acetaminophen [Tylenol Arthritis] 650 mg PO Q6H #30 tablet.er Cetirizine HCl [Zyrtec 10 mg Tablet] 10 mg PO DAILY #30 tablet
== END 2020-02-01 13:15 | disposition home or self-care (01) ==
LOC: ER 12:51
DX: M19.071 Primary osteoarthritis, right ankle and foot (principal); M19.072 Primary osteoarthritis, left ankle and foot; T78.40XA Allergy, unspecified, initial encounter; X58.XXXA Exposure to other specified factors, initial encounter; M79.671 Pain in right foot; M79.672 Pain in left foot; F17.200 Nicotine dependence, unspecified, uncomplicated; Z59.0 Homelessness
CPT/HCPCS: 99283

== ENCOUNTER 2020-02-12 17:31 | Emergency (ER) | payer MEDICARE, OTHER ==
[2020-02-12 17:35] VITALS: BP 118/82
--- NOTE | 2020-02-12 19:56 | ER Document Report ---
HPI - HPI Time Seen by Provider: 02/12/20 18:36 Pain Level: Denies Context: Patient is a 44-year-old male who presents to the emergency department for nasal congestion. Patient states that he has been congested for the past year. States that he has had a chest cold with associated rhinorrhea. States he has not been taking medications for his rhinorrhea. Chest pain, shortness of breath, difficulty breathing, back pain, abdominal pain, nausea, vomiting, or any other symptoms. He is asking for "Epsom salts and wraps for his feet." Denies any pain to the area. Patient is homeless as per previous visit. Patient is seen here multiple times for the same issues. Patient has a history of schizophrenia. He is currently taking benztropine 0.5 mg, 1 mg nightly. - CONSTITUTIONAL Constitutional: DENIES: Fever, Chills - EENT EENT: REPORTS: Nasal Drainage-Clear, Congestion. DENIES: Sore Throat, Ear Pain, Nasal Drainage-Purulent, Eye problems - CARDIOVASCULAR Cardiovascular: DENIES: Chest pain - RESPIRATORY Respiratory: DENIES: Trouble Breathing, Coughing - GASTROINTESTINAL Gastrointestinal: DENIES: Abdominal Pain, Nausea, Patient vomiting - REPRODUCTIVE Reproductive: DENIES: : - MUSCULOSKELETAL Musculoskeletal: DENIES: Extremity pain - bilateral lower extremities - DERM Skin Color: Normal Skin Problems: None Past Medical History - Social History Smoking Status: Current Some Day Smoker Family History: Reviewed & Not Pertinent Patient has suicidal ideation: No Patient has homicidal ideation: No Renal/ Medical History: Denies: Hx Peritoneal Dialysis Psychiatric Medical History: Reports: Hx Depression - anxiety, Hx Schizoaffective Disorder, Hx Schizophrenia Traumatic Medical History: Reports: Hx Traumatic Brain Injury - 10 years ago - Immunizations Immunizations up to date: No Vertical Provider Document - CONSTITUTIONAL Agree With Documented VS: Yes Exam Limitations: No Limitations General Appearance: No Apparent Distress - INFECTION CONTROL TRAVEL OUTSIDE OF THE [place] IN LAST 30 DAYS: No - HEENT HEENT: Atraumatic, Normocephalic, PERRLA Notes: clear rhinorrhea noted; edema and erythema to nasal mucosa - NECK Neck: Normal Inspection - RESPIRATORY Respiratory: Breath Sounds Normal, No Respiratory Distress - CARDIOVASCULAR Cardiovascular: Regular Rhythm Pulses: Normal: Radial - MUSCULOSKELETAL/EXTREMETIES Musculoskeletal/Extremeties: FROM, Edema - NEURO Level of Consciousness: Awake, Alert, Appropriate Motor/Sensory: No Motor Deficit, No Sensory Deficit - DERM Integumentary: Warm, Dry Course - Re-evaluation Re-evalutation: 02/12/20 Physical exam is consistent with seasonal allergies. Patient will be started on cetirizine and Flonase. He was started on cetirizine when he was here his last visit, but states he is not taking it. Due to COVID 19 and the the patient maybe will not be able to see his PCM, he will be given another prescription. I have a very low suspicion for coronavirus infection. He will also be given juan c wraps to help with his feet. I have very low suspicion for any life- threatening etiology at this time. Follow-up precautions were given. Verbal discharge instructions were given to the patient. They verbalized understanding. They are stable for discharge. - Vital Signs Vital signs: Temp Pulse Resp BP Pulse Ox 97.5 F 105 H 20 118/82 96 02/12/20 17:56 02/12/20 17:34 02/12/20 17:34 02/12/20 17:34 02/12/20 17:34 Procedures - Immobilization Bilateral LE Pre-Proc Neuro Vasc Exam: Normal Immobilizer type: Juan C wrap Performed by: RN Post-Proc Neuro Vasc Exam: Normal, Unchanged from pre-exam Alignment checked and good: Yes Discharge - Discharge Clinical Impression: Rhinorrhea Condition: Stable Disposition: HOME, SELF-CARE Additional Instructions: You are seen today in the emergency department for a chest cold. Your lung sounds are normal. Please start cetirizine and Flonase to help with your symptoms. You buy Epsom salts and Juan C wraps at the pharmacy. Follow-up with your primary care provider regards to this visit. Prescriptions: Cetirizine HCl [All Day Allergy] 10 mg PO DAILY #30 tablet Fluticasone Propionate [Flonase Nasal Risco 50 Mcg/Risco 16 gm] 2 sprays NASL DAILY #1 inhaler
[2020-02-12] MEDS ORDERED: CETIRIZINE 10 MG TABLET PO ONE (20:02)
== END 2020-02-12 20:15 | disposition home or self-care (01) ==
LOC: ER 17:31
DX: R09.81 Nasal congestion (principal); J34.89 Other specified disorders of nose and nasal sinuses; F17.200 Nicotine dependence, unspecified, uncomplicated; Z87.820 Personal history of traumatic brain injury
CPT/HCPCS: 99283; A9270

== ENCOUNTER 2020-02-13 02:22 | Emergency (ER) | payer MEDICARE, MEDICAID ==
--- NOTE | 2020-02-13 04:09 | ER Document Report ---
HPI - HPI Patient complains to provider of: L foot pain Time Seen by Provider: 02/13/20 03:47 Pain Level: 4 Context: 44-year-old male with suspected schizophrenia with multiple recent ED visits here for similar chief complaints presents to the emergency department for left foot pain. He states that "my foot is soft" and is asking for some cream. Patient states that it is been like that for quite some time and has been assessed here recently for it. Patient denies any fevers or chills, denies any problems with walking, denies any redness at the site. Patient is also asking for some "toenail clipper so I can clip my feet". No other complaints - REPRODUCTIVE Reproductive: DENIES: : Past Medical History - Social History Smoking Status: Current Every Day Smoker Frequency of alcohol use: nightly Family History: Reviewed & Not Pertinent Patient has suicidal ideation: No Patient has homicidal ideation: No Renal/ Medical History: Denies: Hx Peritoneal Dialysis Psychiatric Medical History: Reports: Hx Depression - anxiety, Hx Schizoaffective Disorder, Hx Schizophrenia Traumatic Medical History: Reports: Hx Traumatic Brain Injury - 10 years ago - Immunizations Immunizations up to date: No Vertical Provider Document - CONSTITUTIONAL Notes: PHYSICAL EXAMINATION: Reviewed vital signs and charting by RN GENERAL: Alert, interacts well. No acute distress. HEAD: Normocephalic, atraumatic. EYES: Pupils equal and round. Extraocular movements intact. ENT: Oral mucosa moist, tongue midline. NECK: Full range of motion. Trachea midline. EXTREMITIES: Moves all 4 extremities spontaneously. No edema, No cyanosis. PSYCH: Normal affect, normal mood. SKIN: Warm, dry, normal turgor. Plantar wart over the pad of the left sole, no evidence of fluctuance, mild tenderness to palpation - INFECTION CONTROL TRAVEL OUTSIDE OF THE [place] IN LAST 30 DAYS: No Course - Re-evaluation Re-evalutation: 02/13/20 04:23 Well-appearing in no acute distress, afebrile, vital signs within normal limits. Patient with frequent multiple visits here recently. Patient complaining of left foot pain. Distal pulses intact and sensation grossly intact. There is evidence of a plantar wart on his left sole, no evidence of fluctuance or infection to be concerned about an abscess. Patient was asked for some ointment to I am going to give him a prescription for some salicylic acid and instructed him to apply it and place duct tape over it. At this time there are no other concerning findings and he is stable for discharge. - Vital Signs Vital signs: Temp Pulse Resp BP Pulse Ox 97.6 F 101 H 22 H 130/79 H 98 02/13/20 02:28 02/13/20 02:26 02/13/20 02:26 02/13/20 02:26 02/13/20 02:26 Discharge - Discharge Clinical Impression: Plantar wart of left foot Condition: Good Disposition: HOME, SELF-CARE Instructions: Plantar Warts ([facility])
[2020-02-13 04:41] VITALS: BP 128/72
== END 2020-02-13 04:40 | disposition home or self-care (01) ==
LOC: ER 02:22
DX: B07.0 Plantar wart (principal); M79.672 Pain in left foot; F17.200 Nicotine dependence, unspecified, uncomplicated; F32.9 Major depressive disorder, single episode, unspecified; F41.9 Anxiety disorder, unspecified; F20.9 Schizophrenia, unspecified; Z87.820 Personal history of traumatic brain injury
CPT/HCPCS: 99283

== ENCOUNTER 2020-02-18 14:27 | Emergency (ER) | payer MEDICARE, MEDICAID ==
[2020-02-18 14:33] VITALS: BP 134/84
[2020-02-18] MEDS ORDERED: IBUPROFEN 800 MG TABLET PO ONE (14:46)
--- NOTE | 2020-02-18 14:52 | ER Document Report ---
HPI - HPI Patient complains to provider of: Bilateral feet pain Time Seen by Provider: 02/18/20 14:41 Onset: Other - Chronic Onset/Duration: Persistent Context: This 44-year-old male with mental health history presents emergency department with complaints of chronic bilateral feet pain. Patient reports he lives in a hotel. Reports he has had a feet pain for a long time. Patient reports he walks a lot. Denies any other complaint such as fever vomiting diarrhea. Denies suicidal or homicidal ideations. Patient is calm and cooperative. - REPRODUCTIVE Reproductive: DENIES: : Past Medical History - General Information source: Patient - Social History Smoking Status: Current Every Day Smoker Cigarette use (# per day): Yes Frequency of alcohol use: Occasional Lives with: Alone, Homeless Family History: Reviewed & Not Pertinent Patient has suicidal ideation: No Patient has homicidal ideation: No Renal/ Medical History: Denies: Hx Peritoneal Dialysis Psychiatric Medical History: Reports: Hx Depression - anxiety, Hx Schizoaffective Disorder, Hx Schizophrenia Traumatic Medical History: Reports: Hx Traumatic Brain Injury - 10 years ago Surgical Hx: Negative - Immunizations Immunizations up to date: No Vertical Provider Document - CONSTITUTIONAL Agree With Documented VS: Yes Exam Limitations: No Limitations General Appearance: WD/WN, No Apparent Distress - INFECTION CONTROL TRAVEL OUTSIDE OF THE [place] IN LAST 30 DAYS: No - HEENT HEENT: Atraumatic, Normocephalic - NECK Neck: Supple - RESPIRATORY Respiratory: No Respiratory Distress - CARDIOVASCULAR Cardiovascular: Regular Rate - MUSCULOSKELETAL/EXTREMETIES Musculoskeletal/Extremeties: MAEW, FROM, Non-Tender - reports bilateral feet pain but no c/o pain with palpation, pedal pulse +3, cap refill less than 2 seconds. No erythema no swelling no warmth no open wounds - NEURO Level of Consciousness: Awake, Alert, Appropriate Motor/Sensory: No Motor Deficit - DERM Integumentary: Warm, Dry Course - Re-evaluation Re-evalutation: 02/18/20 14:51 44-year-old male who presents with complaints of chronic feet pain. Patient has been here in the past for the same pain. I suspect he may have plantar fasciitis. No obvious injury to his feet. Cap refill less than 2 seconds pedal pulse +3. Patient was instructed on importance of wearing good supportive feet wear and inserting padding. Also discussed ibuprofen and ice. Instructed to follow-up with his primary care provider. - Vital Signs Vital signs: Temp Pulse Resp BP Pulse Ox 97.8 F 99 16 134/84 H 98 02/18/20 14:32 02/18/20 14:32 02/18/20 14:32 02/18/20 14:32 02/18/20 14:32 Discharge - Discharge Clinical Impression: Bilateral foot pain Condition: Stable Disposition: HOME, SELF-CARE Instructions: Use of [id number] Ibuprofen ([facility]) Additional Instructions: *You have been evaluated for bilateral foot pain *Wear good supporting shoes, insert padding as discussed *Follow up with your primary care provider within 1 week for recheck *Take ibuprofen as indicated for pain *Return to ED for worsening condition, changes, needs Monitor your blood pressure. Your blood pressure was elevated today. This may be because you were anxious, in pain or because you need medication. It is important to follow up with your primary care provider for full evaluation. Forms: Elevated Blood Pressure
== END 2020-02-18 14:54 | disposition home or self-care (01) ==
LOC: ER 14:27
DX: M79.671 Pain in right foot (principal); M79.672 Pain in left foot; F17.210 Nicotine dependence, cigarettes, uncomplicated
CPT/HCPCS: 99283; A9270

== ENCOUNTER 2020-04-14 14:16 | Emergency (ER) | payer MEDICARE, MEDICAID ==
[2020-04-14 14:43] VITALS: BP 120/80
--- NOTE | 2020-04-14 15:37 | ER Document Report ---
ED General - General Chief Complaint: Foot Pain Stated Complaint: CONGESTION Time Seen by Provider: 04/14/20 15:01 Primary Care Provider: [facility] [Provider Group] - Follow up in 3-5 days (Call for an outpatient follow-up appointment.) Mode of Arrival: Ambulatory Information source: Patient Notes: 44-year-old male who denies any previous medical problems presents to the emergency room complaining of worsening chronic congestion and right ear feeling clogged. States he also has calluses on his feet that he would like to have looked at. He denies any fevers. No medications for any of his symptoms. Denies any pain. TRAVEL OUTSIDE OF THE [place] IN LAST 30 DAYS: No - Related Data Allergies/Adverse Reactions: No Known Allergies Allergy (Verified 02/18/20 14:41) Home Medications: pt states that he takes pills but has "no idea what they are for" Past Medical History - General Information source: Patient - Social History Smoking Status: Current Every Day Smoker Frequency of alcohol use: None Drug Abuse: None Family History: Reviewed & Not Pertinent Patient has homicidal ideation: No Renal/ Medical History: Denies: Hx Peritoneal Dialysis Psychiatric Medical History: Reports: Hx Depression - anxiety, Hx Schizoaffective Disorder, Hx Schizophrenia Traumatic Medical History: Reports: Hx Traumatic Brain Injury - 10 years ago - Immunizations Immunizations up to date: No Review of Systems - Review of Systems Constitutional: No symptoms reported EENT: Nose congestion, Other - Right ear feels clogged Cardiovascular: No symptoms reported Respiratory: No symptoms reported Musculoskeletal: No symptoms reported Skin: Other - Calluses Neurological/Psychological: No symptoms reported -: Yes All other systems reviewed and negative Physical Exam - Vital signs Vitals: Temp Pulse Resp BP Pulse Ox 98.1 F 90 18 120/80 100 04/14/20 14:42 04/14/20 14:42 04/14/20 14:42 04/14/20 14:42 04/14/20 14:42 - General General appearance: Appears well, Alert In distress: Mild - HEENT Head: Normocephalic, Atraumatic Eyes: Normal Conjunctiva: Normal Ears: Normal External canal: Normal Tympanic membrane: Retracted - Right tympanic membrane is retracted with clear fluid noted behind the tympanic membrane. Left tympanic membrane intact with no erythema bulging or fluid noted. Sinus: Normal Nasal: Normal Pharynx: Normal Neck: Normal - Respiratory Respiratory status: No respiratory distress Chest status: Nontender Breath sounds: Normal Chest palpation: Normal - Cardiovascular Rhythm: Regular Heart sounds: Normal auscultation Murmur: No - Neurological Neuro grossly intact: Yes Cognition: Normal Orientation: AAOx4 [place] Coma Scale Eye Opening: Spontaneous [place] Coma Scale Verbal: Oriented [place] Coma Scale Motor: Obeys Commands [place] Coma Scale Total: 15 Speech: Normal Motor strength normal: LUE, RUE, LLE, RLE Sensory: Normal - Skin Skin Temperature: Warm Skin Moisture: Dry Skin Color: Normal Course - Re-evaluation Re-evalutation: 04/14/20 15:32 Reviewed diagnosis with patient. Counseled on need to follow-up with [facility] for possible referral to a client application support specialist. Use nasal spray as prescribed. Patient was given strict return to the emergency room guidelines. Return for any new or worsening symptoms. All questions were answered. Patient verbalized understanding and agrees with plan of care. - Vital Signs Vital signs: Temp Pulse Resp BP Pulse Ox 98.1 F 90 18 120/80 100 04/14/20 14:42 04/14/20 14:42 04/14/20 14:42 04/14/20 14:42 04/14/20 14:42 Discharge - Discharge Clinical Impression: Plantar callus, Plantar wart of right foot, Sinus congestion Eustachian tube dysfunction Qualifiers: Laterality: right Qualified Code(s): H69.81 - Other specified disorders of Eustachian tube, right ear Condition: Stable Disposition: HOME, SELF-CARE Instructions: [facility], Nasal Congestion in Infants ([facility]), Plantar Warts ([facility]), Viral Syndrome ([facility]) Additional Instructions: Use nasal spray as prescribed. Follow-up with [facility] care in clinic as discussed for possible referral to client application support specialist for your plantar wart and calluses return for any new or worsening symptoms. Prescriptions: Fluticasone Propionate [Flonase Nasal [place] 50 Mcg/[place] 16 gm] 2 sprays NASL Q12 #1 inhaler Referrals: [facility] [Provider Group] - Follow up in 3-5 days (Call for an outpatient follow-up appointment.)
== END 2020-04-14 15:48 | disposition home or self-care (01) ==
LOC: ER 14:16
DX: H69.81 Other specified disorders of Eustachian tube, right ear (principal); L84 Corns and callosities; B07.0 Plantar wart; R09.81 Nasal congestion
CPT/HCPCS: 99283

== ENCOUNTER 2020-09-05 11:59 | Emergency (ER) | payer MEDICARE, MEDICAID ==
--- NOTE | 2020-09-05 13:02 | ER Document Report ---
ED Medical Screen (RME) - General Chief Complaint: Nausea Stated Complaint: NAUSEA/SWEATING/FATIGUE/DEPRESSION Time Seen by Provider: 09/05/20 12:56 Mode of Arrival: Ambulatory Information source: Patient Notes: HPI; 44-year-old male past medical history significant for arthritis, depression, medic brain injury presents to the emergency room with multiple complaints. Patient states he has chronic general body aches. States he is out of medications. Denies chest pain, does complain of shortness of breath worse with exertion. Patient just keeps stating "I need all my medications". PE: Alert and oriented x3. Lungs: Rhonchi no wheezes no rales. Heart: Regular rate rhythm without murmurs, rubs, gallops. I have greeted and performed a rapid initial assessment of this patient. A c omprehensive ED assessment and evaluation of the patient, analysis of test results and completion of the medical decision making process will be conducted by additional ED providers. I have specifically instructed the patient or family members with the patient to immediately return to any nursing staff should anything change in the patient's condition or with their chief complaint. TRAVEL OUTSIDE OF THE [place] IN LAST 30 DAYS: No - Related Data Allergies/Adverse Reactions: No Known Allergies Allergy (Verified 02/18/20 14:41) Past Medical History Renal/ Medical History: Denies: Hx Peritoneal Dialysis Psychiatric Medical History: Reports: Hx Depression - anxiety, Hx Schizoaffective Disorder, Hx Schizophrenia Traumatic Medical History: Reports: Hx Traumatic Brain Injury - 10 years ago - Immunizations Immunizations up to date: No Physical Exam - Vital signs Vitals: Temp Pulse Resp BP Pulse Ox 97.6 F 81 20 115/77 98 09/05/20 12:53 09/05/20 12:53 09/05/20 12:53 09/05/20 12:53 09/05/20 12:53 Course - Vital Signs Vital signs: Temp Pulse Resp BP Pulse Ox 97.6 F 81 20 115/77 98 09/05/20 12:53 09/05/20 12:53 09/05/20 12:53 09/05/20 12:53 09/05/20 12:53
--- NOTE | 2020-09-05 13:35 | RADIOLOGY REPORT (SQ) ---
EXAM DESCRIPTION: CHEST SINGLE VIEW IMAGES COMPLETED DATE/TIME: 09/05/2020 12:10 pm REASON FOR STUDY: dyspnea COMPARISON: 03/01/2019 EXAM PARAMETERS: NUMBER OF VIEWS: One view. TECHNIQUE: Single frontal radiographic view of the chest acquired. RADIATION DOSE: NA LIMITATIONS: None. FINDINGS: LUNGS AND PLEURA: Ill-defined patchy consolidation at the right lung base and peripheral l eft lung. No pleural effusion or pneumothorax. MEDIASTINUM AND HILAR STRUCTURES: No masses. Contour normal. HEART AND VASCULAR STRUCTURES: Heart normal in size. Normal vasculature. BONES: No acute findings. HARDWARE: None in the chest. OTHER: No other significant finding. IMPRESSION: Ill-defined patchy opacities in the lower lobes may represent infectious/ inflammatory p rocess or atelectasis. TECHNICAL DOCUMENTATION: JOB ID: [id number] 2010 [employer]- All Rights Reserved Reading location - IP/workstation name: [email or web address]
--- NOTE | 2020-09-05 14:19 | ER Document Report ---
ED General - General Mode of Arrival: Ambulatory TRAVEL OUTSIDE OF THE [place] IN LAST 30 DAYS: No <TIM DONNELLY - Last Filed: 09/05/20 14:21> <AMAYA LACY - Last Filed: 09/05/20 15:54> - General Chief Complaint: Psych Problem Stated Complaint: NAUSEA/SWEATING/FATIGUE/DEPRESSION Time Seen by Provider: 09/05/20 12:56 - Related Data Allergies/Adverse Reactions: No Known Allergies Allergy (Verified 02/18/20 14:41) Past Medical History - General Information source: Patient - Social History Smoking Status: Current Every Day Smoker Drug Abuse: None Family History: Reviewed & Not Pertinent Patient has homicidal ideation: No Renal/ Medical History: Denies: Hx Peritoneal Dialysis Psychiatric Medical History: Reports: Hx Depression - anxiety, Hx Schizoaffective Disorder, Hx Schizophrenia Traumatic Medical History: Reports: Hx Traumatic Brain Injury - 10 years ago - Immunizations Immunizations up to date: No <TIM DONNELLY - Last Filed: 09/05/20 14:21> Physical Exam - Vital signs Vitals: Temp Pulse Resp BP Pulse Ox 97.6 F 81 20 115/77 98 09/05/20 12:53 09/05/20 12:53 09/05/20 12:53 09/05/20 12:53 09/05/20 12:53 Course - Laboratory Result Diagrams: 09/05/20 14:00 09/05/20 14:00 <TIM DONNELLY - Last Filed: 09/05/20 14:21> - Laboratory Result Diagrams: 09/05/20 14:00 09/05/20 14:00 <AMAYA LACY - Last Filed: 09/05/20 15:54> - Vital Signs Vital signs: Temp Pulse Resp BP Pulse Ox 97.6 F 81 20 112/82 99 09/05/20 12:53 09/05/20 12:53 09/05/20 14:00 09/05/20 14:00 09/05/20 14:00 - Laboratory Laboratory results interpreted by me: 09/05/20 09/05/20 14:00 14:00 Urine Protein 30 H Urine Urobilinogen 2.0 H Salicylates < 1.0 L Acetaminophen < 10 L Discharge <TIM DONNELLY - Last Filed: 09/05/20 14:21> <BAMBIAMAYA - Last Filed: 09/05/20 15:54> - Discharge Clinical Impression: Depression, Suicidal ideation Condition: Stable Disposition: HOME, SELF-CARE Additional Instructions: You have been evaluated by both medical and behavioral health teams for depression and possible suicidal ideation. While in the emergency department you received the following services/or had access to: Medical screening and assessment, nursing services, dietary services, pharmacological services, one-on-one counseling and/or psychotherapy, environmental services, and continuous observation by a patient global safety officer. You should continue your home medications as prescribed and follow up with your medication provider. You are recommended to follow up with your medication management provider Monday morning at [facility]. You are recommended to return to the emergency department if you begin to feel unsafe, experience suicidal thoughts, plans, or intent. You are recommended to stop using marijuana as you will be trying to get back on psychiatric medications. You are recommended to not mix illegal substances with prescription medication. Suicidal Ideation Suicidal ideation is a common medical term for thoughts about suicide, whi ch may be as detailed as a formulated plan, without the suicidal act itself. Although most people who undergo suicidal ideation do not commit suicide, some go on to make suicide attempts. The range of suicidal ideation varies greatly from fleeting to detailed planning, role playing, and unsuccessful attempts. While thoughts about suicide are common, most people do not carry out serious actions to commit suicide. However, based upon your evalutation and discussion with you, we believe you are not currently at risk. You are recommended to follow up with [facility] for medication. Depression Your evaluation reveals that you have mental depression. While symptoms may be vague, they often include disturbance of sleep, fatigue, loss of appetite, and general loss of interest in life. While depression may be a side effect of drugs, or a reaction to a major change in your life, many cases have no known cause. If depression is acute, and related to a major loss in your life, you can expect it to clear completely with time. If you have been depressed a long time, are prone to repeated bouts of depression or low mood, or have been thinking of suicide, get help. Depression can be treated with anti-depressant medication and counselling. Long-term depression will often take a few weeks to clear, even with appropriate medication. Follow-up care is important. Contact your physician, the hospital emergency center, crisis line, or your counsellor if you are losing control or having self-destructive thoughts. Referrals: [facility] [Outside] - Follow up as needed [facility] [Outside] - Follow up as needed
[2020-09-05 14:22] LABS: APPEARANCE,URINE SLIGHTLY-CLOUDY; BILIRUBIN,URINE NEGATIVE (NEGATIVE); COLOR,URINE AMBER; GLUCOSE, URINE NEGATIVE (NEGATIVE); KETONES,URINE NEGATIVE (NEGATIVE); LEUKOCYTE ESTERASE,URINE NEGATIVE (NEGATIVE); NITRITE,URINE NEGATIVE (NEGATIVE); PROTEIN,URINE 30 mg/dL (NEGATIVE); URINE SPECIFIC GRAVITY 1.028
[2020-09-05 14:26] LABS: ABSOLUTE LYMPHOCYTES (AUTO) 1.9 10^3/uL (0.5-4.7); ABSOLUTE MONOCYTES (AUTO) 0.4 10^3/uL (0.1-1.4); ABSOLUTE NEUT (AUTO) 4.9 10^3/uL (1.7-8.2); BASOPHILS % (AUTO) 0.4 % (0-2); EOSINOPHILS % (AUTO) 0.2 % (0-6); HEMOGLOBIN 15.3 g/dL (13.5-17.0); LYMPHOCYTES % (AUTO) 26.3 % (13-45); MEAN CORPUSCULAR HEMOGLOBIN 30.4 pg (27.0-33.4); MEAN CORPUSCULAR HGB CONC 34.7 g/dL (32.0-36.0); MEAN CORPUSCULAR VOLUME 88 fl (80-97); MONOCYTES % (AUTO) 5.3 % (3-13); PLATELET COUNT 310 10^3/uL (150-450); RED BLOOD COUNT 5.01 10^6/uL (4.35-5.55); RED CELL DISTRIBUTION WIDTH 13.1 % (11.5-14.0); SEGMENTED NEUTROPHILS % (AUTO) 67.8 % (42-78); TOTAL CELLS COUNTED % (AUTO) 100 %; WHITE BLOOD COUNT 7.2 10^3/uL (4.0-10.5)
[2020-09-05 14:42] LABS: URINE AMPHETAMINES SCREEN NEGATIVE; URINE BARBITURATES SCREEN NEGATIVE; URINE BENZODIAZEPINES SCREEN NEGATIVE; URINE COCAINE SCREEN NEGATIVE; URINE METHADONE SCREEN NEGATIVE; URINE PHENCYCLIDINE SCREEN NEGATIVE
[2020-09-05 14:44] LABS: URINE MARIJUANA (THC) SCREEN UNCONFIRMED POSITIVE
[2020-09-05 14:51] LABS: ALBUMIN 4.4 g/dL (3.5-5.0); ALKALINE PHOSPHATASE 72 U/L (38-126); ANION GAP 10 (5-19); ASPARTATE AMINO TRANSFERASE 18 U/L (17-59); BILIRUBIN,TOTAL 0.5 mg/dL (0.2-1.3); BLOOD UREA NITROGEN 9 mg/dL (7-20); CALCIUM 9.9 mg/dL (8.4-10.2); CARBON DIOXIDE 27 mmol/L (22-30); CHLORIDE 105 mmol/L (98-107); GLUCOSE 101 mg/dL (75-110); TOTAL PROTEIN 7.2 g/dL (6.3-8.2)
[2020-09-05 14:54] LABS: ACETAMINOPHEN < 10 ug/mL (10-30); ALCOHOL < 10 mg/dL (NONE DETECTED); SALICYLATE < 1.0 mg/dL (2.0-20.0)
[2020-09-05] MEDS ORDERED: IBUPROFEN 800 MG TABLET PO ONE (15:28)
[2020-09-05 16:03] LABS: A TYPE INFLUENZA AG NEGATIVE (NEGATIVE); B INFLUENZA AG NEGATIVE (NEGATIVE)
--- NOTE | 2020-09-05 17:19 | PSYCHOLOGICAL NOTE ---
Psych Note - Psych Note Date seen by psych provider: 09/05/20 Time seen by psych provider: 14:30 Psych Note: [id number] Reason for Consult: depression, suicidal thoughts Patient is a 44 year old male who presented to the [facility] ED today with depression and possible suicidal ideation. Patient denies suicidal ideations, plan, or intent. He denies homicidal ideations. Patient states he has ran out of his medications a few months ago. He reports going to [facility] for medication management and states he went today to get medication, however was reminded today was Monday and [facility] would reopen Monday. Patient denies alcohol and substance use, however UDS as positive for THC. Patient is not a danger to self or others. Patient was alert and oriented to self, person, place, and situation. Mood was content with congruent affect. He denied current SI/HI. Patient did not appear to be responding to internal stimuli as evidenced by fair eye contact and answering questions appropriately when addressed. Thought processes are linear and organized. Conversational speech was within normal limits for rate, tone and prosody. Intellectual abilities are estimated to be average. Insight, judgment and impulse control were fair as evidenced by stating he was going to walk into [facility] Monday for a medication check/ refill. Clinical Presentation: depression, possible SI, no plan or intent IVC Criteria per [place] GS 122C Dangerous to others Within the relevant past the individual No has inflicted or attempted to inflict or threatened to inflict serious bodily harm on another AND No that there is a reasonable probability that this conduct will be repeated. OR No has acted in such a way as to create a substantial risk of serious bodily harm to another AND No that there is a reasonable probability that this conduct will be repeated. OR No has engaged in extreme destruction of property AND NO that there is a reasonable probability that this conduct will be repeated. Previous episodes of dangerousness to others, when applicable, may be considered when determining reasonable probability of future dangerous conduct. Clear, cogent, and convincing evidence that an individual has committed a homicide in the relevant past is prima facie evidence of dangerousness to others. Dangerous to self Within the relevant past the individual has done any of the following: acted in such a way as to show ALL of the following: No The individual would be unable without care, supervision, and the continued assistance of others not otherwise available, to exercise self- control, judgment, and discretion in the conduct of the individual's daily r esponsibilities and social relations or to satisfy the individual's need for nourishment, personal or medical care, senior care, or self-protection and safety. AND No There is a reasonable probability of the individual suffering serious physical debilitation within the near future unless adequate treatment is given. A showing of behavior that is grossly irrational, of actions that the individual is unable to control, of behavior that is grossly inappropriate to the situation, or of other evidence of severely impaired insight and judgment shall create a prima facie inference that the individual is unable to care for himself or herself. OR No has attempted suicide or threatened suicide Denies current and history of SI AND No that there is a reasonable probability of suicide unless adequate treatment is given OR No has mutilated himself or herself or attempted to mutilate himself or herself AND No that there is a reasonable probability of serious self-mutilation unless adequate treatment is given. NOTE: Previous episodes of dangerousness to self, when applicable, may be considered when determining reasonable probability of physical debilitation, suicide, or self-mutilation. Impression\plan: Patient is not a danger to himself or others. Patient is recommended to follow up with your medication management provider Monday morning at [facility]. Patient is recommended to return to the emergency department if you begin to feel unsafe, experience suicidal thoughts, plans, or intent. He is recommended to stop using marijuana. He is recommended to not mix illegal substances with prescription medication. Dr. Nicholson was consulted to care management of this patient; attending physicians in agreement with recommendations and disposition.
--- NOTE | 2020-09-05 18:23 | ER Document Report ---
ED General - General Chief Complaint: Psych Problem Stated Complaint: NAUSEA/SWEATING/FATIGUE/DEPRESSION Time Seen by Provider: 09/05/20 12:56 Primary Care Provider: Raul Farris [Outside] - Follow up as needed [facility] [Outside] - Follow up as needed ANDRE DAWKINS MD [COMMUNITY BASED STAFF] - Follow up as needed Mode of Arrival: Ambulatory TRAVEL OUTSIDE OF THE [place] IN LAST 30 DAYS: No - HPI Notes: 44-year-old male presents to the emergency room today for complaints of systemic body arthritis and depression. Patient denies any homicidal suicidal ideation to this provider but he did endorse suicidal ideation with the nurse taking care of him. Patient states that he was on depression medication in the past but he does not remember the name of it. When asked him if he has arthritis in a specific joint is bothering him he said he does not, he just has general pains in his hands his feet and his knees. Denies any trauma or recent falls. Has not tried any mxuf-urj-[id number] medication such as Tylenol or ibuprofen. Denies fevers, chills, chest pain,palpitations, shortness of breath, dyspnea, nausea, vomiting, diarrhea, abdominal pain, hematuria,blurred vision, double vision, loss of vision, speech changes, LH, dizziness, syncope, headaches, wheezing, ST, URI, neck pain, weakness, bowel or bladder dysfunction, saddle anesthesia, numbness or tingling in bilateral upper or lower extremities equally, muscle pa ralysis, weakness in bilateral upper or lower extremities equally or rash. Denies IV drug use. - Related Data Allergies/Adverse Reactions: No Known Allergies Allergy (Verified 02/18/20 14:41) Past Medical History - General Information source: Patient - Social History Smoking Status: Current Every Day Smoker Drug Abuse: None Family History: Reviewed & Not Pertinent Patient has homicidal ideation: No Renal/ Medical History: Denies: Hx Peritoneal Dialysis Psychiatric Medical History: Reports: Hx Depression - anxiety, Hx Schizoaffective Disorder, Hx Schizophrenia Traumatic Medical History: Reports: Hx Traumatic Brain Injury - 10 years ago - Immunizations Immunizations up to date: No Review of Systems - Review of Systems Constitutional: No symptoms reported EENT: No symptoms reported Cardiovascular: No symptoms reported Respiratory: No symptoms reported Gastrointestinal: No symptoms reported Genitourinary: No symptoms reported Male Genitourinary: No symptoms reported Musculoskeletal: See HPI Skin: No symptoms reported Hematologic/Lymphatic: No symptoms reported Neurological/Psychological: See HPI Physical Exam - Vital signs Vitals: Temp Pulse Resp BP Pulse Ox 97.6 F 81 20 115/77 98 09/05/20 12:53 09/05/20 12:53 09/05/20 12:53 09/05/20 12:53 09/05/20 12:53 - Notes Notes: MEDICATIONS: I agree with the patient medications as charted by the RN. ALLERGIES: I agree with the allergies as charted by the RN. PAST MEDICAL HISTORY/PAST SURGICAL HISTORY: Reviewed and agree as charted by RN. SOCIAL HISTORY: Reviewed and agree as charted by RN. FAMILY HISTORY: No significant familial comorbid conditions directly related to patient complaint EXAM: Reviewed vital signs as charted by RN. PHYSICAL EXAMINATION:reviewed vital signs by RN GENERAL: Well-appearing, well-nourished and in no acute distress. HEAD: Atraumatic, normocephalic. EYES: Pupils equal round and reactive to light, extraocular movements intact, sclera anicteric, conjunctiva are normal. ENT: Nares patent, oropharynx clear without exudates. Moist mucous membranes. NECK: Normal range of motion, supple without lymphadenopathy LUNGS: Breath sounds clear to auscultation bilaterally and equal. No wheezes rales or rhonchi. HEART: Regular rate and rhythm without murmurs ABDOMEN: Soft, nontender, nondistended abdomen. No guarding, no rebound. No masses appreciated. Musculoskeletal: Normal range of motion, no pitting or edema. No cyanosis. NEUROLOGICAL: Cranial nerves grossly intact. Normal speech, normal gait. Normal sensory, motor exams PSYCH: Normal mood, normal affect. SKIN: Warm, Dry, normal turgor, no rashes or lesions noted. Course - Re-evaluation Re-evalutation: 09/05/20 19:03 Afebrile vital stable no distress. Nurses notes reviewed. CBC negative for leukocytosis or anemia, CMP negative for medical renal dysfunction. No electrolyte disturbances. EKG negative for STEMI, no ST segment elevations. Urine drug screen does show positive for marijuana. Mental health has been by to see patient, they did not advise for any medications for depression right now as patient does have a follow-up appointment with [facility] in 2 days, which they feel like is the best plan of care so they can be continuity in the medications and fsgs-[id number] interactions chest x-ray does show patchy infiltrates, we will test him for Covid with the understanding that he does need to social distance, self quarantine, wash hands and wear mask. We will start him on azithromycin, prednisone, proair. Patient is complaining of nonspecific arthritic pains in his hands elbows knees feet. Patient has not tried any ibuprofen or Tylenol. I will write patient for prescription for ibuprofen and referral to follow-up with primary care provider. After performing a Medical Screening Examination, I estimate there is LOW risk for ACUTE CORONARY SYNDROME, PULMONARY EMBOLI, RESPIRATORY FAILURE, SEPSIS OR MENINGITIS, thus I consider the discharge d isposition reasonable. I have reevaluated this patient multiple times and no significant life threatening changes are noted. The patient and I have discussed the diagnosis and risks, and we agree with discharging home with close follow- up. We also discussed returning to the Emergency Department immediately if new or worsening symptoms occur. We have discussed the symptoms which are most concerning (e.g., changing or worsening pain, trouble swallowing or breathing, neck stiffness, fever) that necessitate immediate return. - Vital Signs Vital signs: Temp Pulse Resp BP Pulse Ox 97.3 F 68 20 120/76 96 09/05/20 18:43 09/05/20 18:43 09/05/20 14:00 09/05/20 18:43 09/05/20 18:43 - Laboratory Result Diagrams: 09/05/20 14:00 09/05/20 14:00 Laboratory results interpreted by me: 09/05/20 09/05/20 14:00 14:00 Urine Protein 30 H Urine Urobilinogen 2.0 H Salicylates < 1.0 L Acetaminophen < 10 L - EKG Interpretation by Me EKG shows normal: Sinus rhythm Rate: Normal Additional EKG results interpreted by me: 09/05/20 19:03 Heart rate 83. P axis 67, QRS axis -42, T axis 48. No STEMI, no ST segment elevations. EKG interpreted by ER supervising physician Discharge - Discharge Clinical Impression: Depression, Suicidal ideation, Person under investigation for COVID-19 Condition: Stable Disposition: HOME, SELF-CARE Instructions: COVID-19 Guidance for Persons Under Investigation Additional Instructions: You have been evaluated by both medical and behavioral health teams for depression and possible suicidal ideation. While in the emergency department you received the following services/or had access to: Medical screening and assessment, nursing services, dietary services, pharmacological services, one-on-one counseling and/or psychotherapy, environmental services, and continuous observation by a patient director of safety. You should continue your home medications as prescribed and follow up with your medication provider. You are recommended to follow up with your medication management provider Monday morning at [facility]. You are recommended to return to the emergency department if you begin to feel unsafe, experience suicidal thoughts, plans, or intent. You are recommended to stop using marijuana as you will be trying to get back on psychiatric medications. You are recommended to not mix illegal substances with prescription medication. Suicidal Ideation Suicidal ideation is a common medical term for thoughts about suicide, which may be as detailed as a formulated plan, without the suicidal act itself. Although most people who undergo suicidal ideation do not commit suicide, some go on to make suicide attempts. The range of suicidal ideation varies greatly from fleeting to detailed planning, role playing, and unsuccessful attempts. While thoughts about suicide are common, most people do not carry out serious actions to commit suicide. However, based upon your evalutation and discussion with you, we believe you are not currently at risk. You are recommended to follow up with [facility] for medication. Depression Your evaluation reveals that you have mental depression. While symptoms may be vague, they often include disturbance of sleep, fatigue, loss of appetite, and general loss of interest in life. While depression may be a side effect of drugs, or a reaction to a major change in your life, many cases have no known cause. If depression is acute, and related to a major loss in your life, you can expect it to clear completely with time. If you have been depressed a long time, are prone to repeated bouts of depression or low mood, or have been thinking of suicide, get help. Depression can be treated with anti-depressant medication and counselling. Long-term depression will often take a few weeks to clear, even with appropriate medication. Follow-up care is important. Contact your physician, the hospital emergency center, crisis line, or your counsellor if you are losing control or having self-destructive thoughts. You are under investigation for Covid, Covid test is pending. Is advised that you self quarantine, wear your mask, social distance, wash your hands frequently. Please refrain from social gatherings until your Covid results are known. Your chest x-ray did show some patchy infiltrates so I am going to start you on a Z-Greg for outpatient antibiotic therapy as well as prednisone and a rescue inhaler. Please follow-up with your primary care provider. They consult with mental health, they do not feel that you should be started on depression medications today but you should go to your [facility] appointment on Monday morning where they can then prescribe you medications. Return immediately for any new or worsening symptoms. Follow up with primary care provider, call tomorrow to make followup appointment. Prescriptions: Albuterol Sulfate [Proair Respiclick] 90 mcg IH Q4HP PRN #1 [id number] PRN Reason: Ibuprofen [Ibu] 800 mg PO Q6HP PRN #20 tablet PRN Reason: Prednisone [Deltasone 20 mg Tablet] 3 tab PO DAILY 5 Days #15 tablet Azithromycin [Zithromax] 250 mg PO DAILY 5 Days #6 tablet Referrals: [facility] [Outside] - Follow up as needed [facility] [Outside] - Follow up as needed ANDRE DAWKINS MD [COMMUNITY BASED STAFF] - Follow up as needed
[2020-09-05 19:03] VITALS: BP 120/76
--- NOTE | 2020-09-06 09:10 | EKG REPORT ---
SEVERITY:- OTHERWISE NORMAL ECG - SINUS RHYTHM LEFT AXIS DEVIATION : Confirmed by: Fletcher Gibbs 06-Sep-2020 09:10:13
== END 2020-09-05 19:03 | disposition home or self-care (01) ==
LOC: ER 11:59
DX: F32.9 Major depressive disorder, single episode, unspecified (principal); R45.851 Suicidal ideations; R91.8 Other nonspecific abnormal finding of lung field; M19.042 Primary osteoarthritis, left hand; M19.041 Primary osteoarthritis, right hand; M19.022 Primary osteoarthritis, left elbow; M19.021 Primary osteoarthritis, right elbow; M19.072 Primary osteoarthritis, left ankle and foot; M19.071 Primary osteoarthritis, right ankle and foot; M17.0 Bilateral primary osteoarthritis of knee; F17.200 Nicotine dependence, unspecified, uncomplicated; Z20.828 Contact with and (suspected) exposure to other viral communicable diseases
CPT/HCPCS: 93005; 99285; 36415; 80307 ×4; 85025; 80053; 81001; 84484; 87804; 71045; 93010; U0003; A9270; C9803; 87635

== ENCOUNTER 2020-09-21 10:20 | Emergency (ER) | payer MEDICARE, MEDICAID ==
--- NOTE | 2020-09-21 10:56 | ER Document Report ---
ED Medical Screen (RME) - General Chief Complaint: Testicular Pain Stated Complaint: TESTICULAR PROBLEM Time Seen by Provider: 09/21/20 10:50 Mode of Arrival: Ambulatory Information source: Patient Notes: Patient presents complaining of scrotal pain for the past 4 years. Patient reports recently getting out of [facility]. Patient denies any penile discharge or urinary symptoms. Patient denies any abdominal pain or flank pain. I have greeted and performed a rapid initial assessment of this patient. A comprehensive ED assessment and evaluation of the patient, analysis of test results and completion of the medical decision making process will be conducted by additional ED providers. TRAVEL OUTSIDE OF THE [place] IN LAST 30 DAYS: No - Related Data Allergies/Adverse Reactions: No Known Allergies Allergy (Verified 02/18/20 14:41) Past Medical History - Social History Frequency of alcohol use: Occasional Drug Abuse: None Renal/ Medical History: Denies: Hx Peritoneal Dialysis Psychiatric Medical History: Reports: Hx Depression - anxiety, Hx Schizoaffective Disorder, Hx Schizophrenia Traumatic Medical History: Reports: Hx Traumatic Brain Injury - 10 years ago - Immunizations Immunizations up to date: No Physical Exam - Vital signs Vitals: Temp Pulse Resp BP Pulse Ox 98.8 F 72 16 135/90 H 99 09/21/20 10:30 09/21/20 10:30 09/21/20 10:30 09/21/20 10:30 09/21/20 10:30 - General General appearance: Appears well, Alert In distress: None - Back Back: No: CVA tenderness Course - Vital Signs Vital signs: Temp Pulse Resp BP Pulse Ox 98.8 F 72 16 135/90 H 99 09/21/20 10:30 09/21/20 10:30 09/21/20 10:30 09/21/20 10:30 09/21/20 10:30
[2020-09-21 11:30] LABS: AMORPHOUS SEDIMENT,URINE TRACE /HPF; APPEARANCE,URINE SLIGHTLY-CLOUDY; BILIRUBIN,URINE NEGATIVE (NEGATIVE); COLOR,URINE YELLOW; GLUCOSE, URINE NEGATIVE (NEGATIVE); KETONES,URINE NEGATIVE (NEGATIVE); LEUKOCYTE ESTERASE,URINE NEGATIVE (NEGATIVE); NITRITE,URINE NEGATIVE (NEGATIVE); PROTEIN,URINE NEGATIVE (NEGATIVE); UROBILINOGEN,URINE NEGATIVE mg/dL (<2.0)
[2020-09-21 11:31] LABS: URINE SPECIFIC GRAVITY 1.016
--- NOTE | 2020-09-21 12:13 | RADIOLOGY REPORT (SQ) ---
EXAM DESCRIPTION: U/S SCROTUM W/DOPPLER IMAGES COMPLETED DATE/TIME: 09/21/2020 11:58 am REASON FOR STUDY: scrotal pain COMPARISON: None. TECHNIQUE: Static and realtime sadler scale imaging of the scrotum and testes. Selected color Doppler and spectral images recorded to document blood flow. LIMITATIONS: None. FINDINGS: RIGHT: TESTICLE: Normal size, 4.5 cm. Normal echotexture. Normal blood flow. No mass. EPIDIDYMIS: 12 mm. 4 x 5 mm epididymal cyst. HYDROCELE OR VARICOCELE: No. HERNIA OR EXTRA-TESTICULAR MASS: No. OTHER: No other significant finding. LEFT: TESTICLE: Normal size, 4.7 cm. Normal echotexture. Normal blood flow. No mass. EPIDIDYMIS: 12 mm. 3 mm epididymal cyst. HYDROCELE OR VARICOCELE: No. HERNIA OR EXTRA-TESTICULAR MASS: No. OTHER: No other significant finding. IMPRESSION: There is a small epididymal cyst on each side. No acute finding. Blood flow to each te sticle. TECHNICAL DOCUMENTATION: JOB ID: [id number] 2010 [employer]- All Rights Reserved Reading location - IP/workstation name: [email or web address]
[2020-09-21 12:50] LABS: CHLAM PCR NOT DETECTED (NOT DETECT)
--- NOTE | 2020-09-21 14:15 | ER Document Report ---
ED General - General Chief Complaint: Testicular Pain Stated Complaint: TESTICULAR PROBLEM Time Seen by Provider: 09/21/20 10:50 Mode of Arrival: Ambulatory Notes: 44-year-old man presents to the emergency department with a complaint of right testicular area pain intermittently for the past 4 years. Patient states that he has noted symptoms which he relates to possibly weightlifting and straining. He denies dysuria or change in his sexual function. Also denies pain with ejaculation or swelling. TRAVEL OUTSIDE OF THE [place] IN LAST 30 DAYS: No - Related Data Allergies/Adverse Reactions: No Known Allergies Allergy (Verified 09/21/20 13:44) Past Medical History - General Information source: Patient - Social History Smoking Status: Current Every Day Smoker Frequency of alcohol use: Occasional Drug Abuse: None Family History: Reviewed & Not Pertinent Renal/ Medical History: Denies: Hx Peritoneal Dialysis Psychiatric Medical History: Reports: Hx Depression - anxiety, Hx Schizoaffective Disorder, Hx Schizophrenia Traumatic Medical History: Reports: Hx Traumatic Brain Injury - 10 years ago - Immunizations Immunizations up to date: No Review of Systems - Review of Systems Notes: Constitutional: Negative for fever. HENT: Negative for sore throat. Eyes: Negative for visual changes. Cardiovascular: Negative for chest pain. Respiratory: Negative for shortness of breath. Gastrointestinal: Negative for abdominal pain, vomiting or diarrhea. Genitourinary: See HPI Musculoskeletal: Negative for back pain. Skin: Negative for rash. Neurological: Negative for headaches, weakness or numbness. 10 point ROS negative except as marked above and in HPI. Physical Exam - Vital signs Vitals: Temp Pulse Resp BP Pulse Ox 98.8 F 72 16 135/90 H 99 09/21/20 10:30 09/21/20 10:30 09/21/20 10:30 09/21/20 10:30 09/21/20 10:30 - Notes Notes: PHYSICAL EXAMINATION: Physical Exam: General: Well-nourished well-developed 44-year-old in no acute distress HEENT: NC/AT, pupils equal round and reactive to light, MM moist,nares clear, oropharynx clear, airway patent Neck: supple, no adenopathy, no masses. Good range of motion Lungs: clear, no wheezing, no rales no rhonchi CVS: Regular rate and rhythm no murmur gallop or rub Abdomen: Soft, active, nontender, no masses, no hepatosplenomegaly Ext: No edema, clubbing or cyanosis. : No tenderness noted in the epididymis and testicle or scrotal region. Swelling, no masses, normal male genitalia uncircumcised, no inguinal hernia or ring defect. No bulging with cough. Neuro: Alert and responsive, moving all 4 extremities on command, cranial nerves intact, no focal findings Skin: Intact no open lesions, no rash Course - Re-evaluation Re-evalutation: 09/21/20 14:13 Patient has had symptoms intermittently for 4 years. There is no obvious signs and symptoms of infection or hernia. Ultrasound scrotal: Negative for blood flow issue. Discussed with the patient that his symptoms are intermittent, long duration may represent inflammation and pain related to inflammation. We will use a trial of anti-inflammatory medication to see if the symptoms improve. He is also encouraged to use a cold compress to the area of pain. Follow-up with primary care doctor would be imperative. We will provide the name of the group as referral. - Vital Signs Vital signs: Temp Pulse Resp BP Pulse Ox 98.8 F 72 16 135/90 H 99 09/21/20 10:30 09/21/20 10:30 09/21/20 10:30 09/21/20 10:30 09/21/20 10:30 - Laboratory Laboratory results interpreted by me: 09/21/20 14:18 I have reviewed laboratory data and used this information for the treatment decisions regarding the patient. - Diagnostic Test Radiology reviewed: Image reviewed, Reports reviewed Radiology results interpreted by me: 09/21/20 14:14 Scrotum Ultrasound 09/21/20 10:55 IMPRESSION: There is a small epididymal cyst on each side. No acute finding. Blood flow to each testicle. Discharge - Discharge Clinical Impression: Epididymal cyst, Testicular pain, right Condition: Good Disposition: HOME, SELF-CARE Instructions: Testicular Pain ([facility]) Additional Instructions: You are seen in the emergency department today with a history of testicular pain for approximately 4 years. Your ultrasound did reveal a cyst on the epididymal region bilaterally. While it is unlikely that these areas are causing the pain the use of an anti-inflammatory medication may be of some use to improve the symptom. I am also giving you the name of urologist to follow-up with if your symptoms are not controlled by the medication. I suggest that you use a cold compress on the area during flareups and to take the medication as prescribed. If your symptoms are worsening or if you have other concerns you may return to the emergency department for further evaluation and treatment HOME CARE INSTRUCTIONS & INFORMATION: Thank you for choosing us for your medical needs. We hope you're satisfied with the care you received. After you leave, you must properly care for your problem and, at the same time, observe its progress. Any condition can change. Some illnesses can change rapidly over hours or days. If your condition worsens, return to the Emergency Department or see your physician promptly. ABOUT YOUR X-RAYS AND EKG'S: If you had an EKG or X-rays taken, they have been read by the Emergency Physician. The X-rays and EKG's will also be read by a Radiologist or Freight Traffic Consultant within 24 hours. If discrepancies are noted, you will be notified by telephone. Please be certain the ED has a correct telephone number & address where you can be reached. Also, realize that some fractures or abnormalities do not show up on initial X-rays. If your symptoms continue, see your physician. ABOUT YOUR LABORATORY TEST: If you had laboratory tests, the results have been reviewed by the Emergency Physician. Some test results (for example cultures) may not be available for several days. You will be contacted if any test result shows you need additional treatment. Please be certain the ED has a correct telephone number and address where you can be reached. ABOUT YOUR MEDICATIONS: You will receive instructions on how to take your medicine on the prescription label you receive. Additional information may be provided by the Pharmacy. If you have questions afterwards, call the ED for clarification or further instructions. Some prescribed medications may cause drowsiness. Do not perform tasks such as driving a car or operating machinery without consulting your Pharmacist. If you feel you need a refill of pain medication, your condition will need re-evaluation. Please do not call for a refill of any medication. ABOUT YOUR SIGNATURE: Signature of this document acknowledges to followin. Understanding that you received emergency treatment and that you may be released before al medical problems are known or treated. Please be certain the ED has a correct phone number & address where you can be reached. 2. Acknowledgement that you will arrange for follow-up care as recommended. 3. Authorization for the Emergency Physician to provide information to your follow-up Physician in order to maximize your care. AT ANY TIME, IF YOUR SYMPTOMS CHANGE SIGNIFICANTLY OR WORSEN OR YOU DEVELOP NEW SYMPTOMS, RETURN TO THE EMERGENCY DEPARTMENT IMMEDIATELY FOR RE-EVALUATION. OUR GOAL IS TO PROVIDE EXCELLENT MEDICAL CARE! WE HOPE THAT WE HAVE MET YOUR EXPECTATIONS DURING YOUR EMERGENCY DEPARTMENT VISIT AND THAT YOU FEEL YOU HAVE RECEIVED EXCELLENT CARE! Prescriptions: Naproxen [Naprosyn] 500 mg PO BID #20 tablet Referrals: CELIA LEIVA MD [NO LOCAL MD] - Follow up as needed
[2020-09-21 14:42] VITALS: BP 124/88
== END 2020-09-21 14:44 | disposition home or self-care (01) ==
LOC: ER 10:20
DX: N50.3 Cyst of epididymis (principal); N50.811 Right testicular pain; X50.0XXA Overexertion from strenuous movement or load, initial encounter; F17.200 Nicotine dependence, unspecified, uncomplicated
CPT/HCPCS: 76870; 81001; 87491; 87591; 93976; 99284